=== PATIENT | male | born 1945 | race Caucasian/White ===

== ENCOUNTER 2017-03-26 10:38 | Outpatient (CLI) | payer MEDICARE ==
[2017-03-26 09:35] LABS: BASOPHILS # (AUTO) 0.1 10^3/uL (0.0-0.1); BASOPHILS % (AUTO) 1.3 %; EOSINOPHILS # (AUTO) 0.1 10^3/uL (0.0-0.7); EOSINOPHILS % (AUTO) 1.3 %; HGB - HEMOGLOBIN 14.4 g/dL (14.0-18.0); LYMPHOCYTES # (AUTO) 1.8 10^3/uL (1.5-3.5); LYMPHOCYTES % (AUTO) 32.8 %; MEAN CORPUSCULAR HEMOGLOBIN 32.5 pg (27.0-31.0); MEAN CORPUSCULAR HGB CONC 34.2 g/dL (32.0-36.0); MEAN PLATELET VOLUME 8.1 fL (7.4-11.4); MONOCYTES # (AUTO) 0.4 10^3/uL (0.0-1.0); MONOCYTES % (AUTO) 6.8 %; NEUTROPHILS # (AUTO) 3.2 10^3/uL (1.5-6.6); NEUTROPHILS % (AUTO) 57.8 %; RED BLOOD COUNT 4.42 10^6/uL (4.70-6.10); RED CELL DISTRIBUTION WIDTH 13.9 % (12.0-15.0); UNCORRECTED WHITE BLOOD COUNT 5.5 x10^3/uL; WHITE BLOOD COUNT 5.5 x10^3/uL (4.8-10.8)
[2017-03-26 10:26] LABS: ALBUMIN/GLOBULIN RATIO 1.3 (1.0-2.2); BUN - BLOOD UREA NITROGEN 28 mg/dL (6-20); CALCIUM 8.9 mg/dL (8.5-10.3); CARBON DIOXIDE - CO2 30 mmol/L (21-32); CHLORIDE 101 mmol/L (101-111); CHOL/HDL RATIO 2.8 (<5.0); CHOLESTEROL 166 mg/dL; CREATININE 0.9 mg/dL (0.6-1.2); GFR - MDRD 84 (>89); GLUCOSE 93 mg/dL (70-100); HDL CHOLESTEROL 60 mg/dL; LDL/HDL RATIO 1.6 (<3.6); SODIUM 138 mmol/L (135-145); TOTAL PROTEIN 6.3 g/dL (6.7-8.2); TRIGLYCERIDES 59 mg/dL; VLDL CHOLESTEROL 12 mg/dL
== END 2017-03-26 10:39 | disposition home or self-care (01) ==
LOC: LAB 10:38
PROVIDERS: ATTEND Internal Medicine
DX: E78.5 Hyperlipidemia, unspecified (principal); R62.50 Unspecified lack of expected normal physiological development in childhood
CPT/HCPCS: 36415; 80053; 80061; 84443; 85025

== ENCOUNTER 2017-07-16 08:00 | Outpatient (CLI) | payer MEDICARE ==
[2017-07-16 17:19] LABS: BASOPHILS % (AUTO) 0.6 %; EOSINOPHILS % (AUTO) 0.1 %; HGB - HEMOGLOBIN 13.1 g/dL (14.0-18.0); LYMPHOCYTES # (AUTO) 1.1 10^3/uL (1.5-3.5); LYMPHOCYTES % (AUTO) 12.9 %; MEAN CORPUSCULAR HEMOGLOBIN 32.6 pg (27.0-31.0); MEAN CORPUSCULAR HGB CONC 32.8 g/dL (32.0-36.0); MEAN CORPUSCULAR VOLUME 99.5 fL (80.0-94.0); MONOCYTES # (AUTO) 0.5 10^3/uL (0.0-1.0); MONOCYTES % (AUTO) 5.3 %; NEUTROPHILS % (AUTO) 81.1 %; PLT - PLATELET COUNT 257 10^3/uL (130-450); RED BLOOD COUNT 4.01 10^6/uL (4.70-6.10); RED CELL DISTRIBUTION WIDTH 13.3 % (12.0-15.0); WHITE BLOOD COUNT 8.6 x10^3/uL (4.8-10.8)
[2017-07-16 17:30] LABS: ALBUMIN 3.1 g/dL (3.2-5.5); CALCIUM 8.5 mg/dL (8.5-10.3); CREATININE 0.9 mg/dL (0.6-1.2); TOTAL PROTEIN 6.2 g/dL (6.7-8.2)
== END 2017-07-16 08:01 | disposition home or self-care (01) ==
LOC: LAB.R 08:00
PROVIDERS: ATTEND Internal Medicine
DX: R19.7 Diarrhea, unspecified (principal); R63.4 Abnormal weight loss
CPT/HCPCS: 80053; 84134; 85025

== ENCOUNTER 2017-09-19 09:21 | Outpatient (CLI) | payer MEDICARE, MEDICAID | END 2017-09-19 09:22 | disposition critical access hospital (66) | LOC: EMS 09:21 | PROVIDERS: ATTEND Surgery | DX: R07.9 Chest pain, unspecified (principal); R53.1 Weakness; R06.00 Dyspnea, unspecified; R26.81 Unsteadiness on feet; R29.6 Repeated falls | CPT/HCPCS: A0425; A0429 ==

== ENCOUNTER 2017-09-19 09:42 | Inpatient (IN) | payer MEDICARE, MEDICAID ==
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
[2017-09-19] MEDS ORDERED: MAGNESIUM SULFATE 2 GRAM 2 GM/50 ML BAG IV STA (10:21)
[2017-09-19] MEDS ORDERED: THIAMINE INJ 100 MG, FOLIC ACID INJ 1 MG in SODIUM CHLORIDE 0.9% 100ML 100 ML IV STA (10:21)
[2017-09-19] MEDS ORDERED: MULTIVITAMIN 10 ML in SODIUM CHLORIDE 0.9% 1,000 ML IV STA (10:21)
[2017-09-19 10:23] LABS: BASOPHILS # (AUTO) 0.1 10^3/uL (0.0-0.1); BASOPHILS % (AUTO) 1.2 %; EOSINOPHILS # (AUTO) 0.1 10^3/uL (0.0-0.7); EOSINOPHILS % (AUTO) 1.6 %; HGB - HEMOGLOBIN 14.1 g/dL (14.0-18.0); LYMPHOCYTES # (AUTO) 1.4 10^3/uL (1.5-3.5); LYMPHOCYTES % (AUTO) 28.7 %; MEAN CORPUSCULAR HEMOGLOBIN 34.2 pg (27.0-31.0); MEAN CORPUSCULAR HGB CONC 33.6 g/dL (32.0-36.0); MEAN CORPUSCULAR VOLUME 101.9 fL (80.0-94.0); MEAN PLATELET VOLUME 8.1 fL (7.4-11.4); MONOCYTES # (AUTO) 0.2 10^3/uL (0.0-1.0); MONOCYTES % (AUTO) 4.2 %; NEUTROPHILS # (AUTO) 3.2 10^3/uL (1.5-6.6); NEUTROPHILS % (AUTO) 64.3 %; PLT - PLATELET COUNT 315 10^3/uL (130-450); RED BLOOD COUNT 4.13 10^6/uL (4.70-6.10); RED CELL DISTRIBUTION WIDTH 14.1 % (12.0-15.0); WHITE BLOOD COUNT 4.9 x10^3/uL (4.8-10.8)
[2017-09-19 10:27] LABS: ALBUMIN 3.3 g/dL (3.2-5.5); ALBUMIN/GLOBULIN RATIO 0.9 (1.0-2.2); BILIRUBIN,TOTAL 0.7 mg/dL (0.2-1.0); CALCIUM 8.8 mg/dL (8.5-10.3); CREATININE 0.8 mg/dL (0.6-1.2); TOTAL PROTEIN 6.8 g/dL (6.7-8.2)
[2017-09-19 10:45] LABS: BILIRUBIN,URINE NEGATIVE (NEGATIVE); GLUCOSE, URINE (UA) NEGATIVE (NEGATIVE); KETONES,URINE (UA) NEGATIVE (NEGATIVE); LEUKOCYTE ESTERASE, URINE NEGATIVE (NEGATIVE); NITRITE,URINE NEGATIVE (NEGATIVE); OCCULT BLOOD,URINE NEGATIVE (NEGATIVE); PROTEIN,URINE NEGATIVE (NEGATIVE); UROBILINOGEN,URINE 0.2 (NORMAL) E.U./dL (NORMAL)
[2017-09-19 10:52] LABS: CLARITY,URINE CLEAR (CLEAR)
[2017-09-19] MEDS ORDERED: TEMAZEPAM 15 MG CAPSULE PO PRN (15:46)
[2017-09-19] MEDS ORDERED: SODIUM CHLORIDE FLUSH 0.9% 10 ML SYRINGE IVP PRN (15:46)
[2017-09-19] MEDS ORDERED: HYDROcod/ACETAM 5/325 MG TABLET PO PRN (15:46)
[2017-09-19] MEDS ORDERED: PROCHLORPERAZINE 10 MG/2 ML VIAL IVP PRN (15:46)
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
[2017-09-19] MEDS: SODIUM CHLORIDE FLUSH 0.9% 10 ML SYRINGE IVP SCH ×2 (17:58→23:44)
[2017-09-20] MEDS: SODIUM CHLORIDE FLUSH 0.9% 10 ML SYRINGE IVP SCH ×2 (08:09→16:28)
[2017-09-20] MEDS ORDERED: POLYETHYLENE GLYCOL 3350 17 GM PACKET PO SCH (09:00)
[2017-09-20 09:43] LABS: FOLATE 15.35 ng/mL (5.90 - >24.8)
--- NOTE | 2017-09-20 14:18 | PROVIDER PROGRESS NOTE ---
Subjective - Prog Note Date Prog Note Date: 09/20/17 Prog Note Time: 13:00 - Subjective Pt reports feeling: No change (The patient denies any new problems. He says he is comfortable and is looking forward to placement in his new facility.) Current Medications - Current Medications Current Medications: Active Medications Acetaminophen/Hydrocodone Bitart ([place] 5/325) 1 tab PO Q4HR PRN PRN Reason: Pain 5 to 7 Polyethylene Glycol (Miralax) 17 gm PO DAILY [facility] Last Admin: 09/20/17 08:09 Dose: 17 gm Prochlorperazine Edisylate (Compazine Inj) 10 mg IVP Q6HR PRN PRN Reason: Nausea / Vomiting Sodium Chloride (Normal Saline Flush 0.9%) 10 ml IVP PRN PRN PRN Reason: NEEDED PER PROVIDER ORDERS Sodium Chloride (Normal Saline Flush 0.9%) 10 ml IVP 0100,0900,1700 [facility] Last Admin: 09/20/17 08:09 Dose: 10 ml Temazepam (Restoril) 15 mg PO QPM PRN PRN Reason: Insomnia No Known Home Medications [No Known Home Medications] 08/17/15 Objective - Vital Signs/Intake & Output Reviewed Vital Signs: Yes Vital Signs: Vital Signs x48h Temp Pulse Resp BP Pulse Ox 09/20/17 07:47 36.7 C 67 20 113/68 97 Intake & Output: Intake & Output 09/17/17 09/18/17 09/19/17 09/20/17 23:59 23:59 23:59 23:59 Intake Total 640 1730 Output Total 301 Balance 640 1429 - Objective General Appearance: positive: No acute distress, Alert Eyes Bilateral: positive: Normal inspection, PERRL, EOMI, No lid inflammation, Conjunctivae nml, No scleral icterus ENT: positive: ENT inspection nml, Pharynx nml, No signs of dehydration Neck: positive: Nml inspection, Thyroid nml, No JVD, Trachea midline. negative : Thyromegaly Respiratory: positive: Chest non-tender, No respiratory distress, Breath sounds nml. negative: Wheezes, Rales, Rhonchi Cardiovascular: positive: Regular rate & rhythm, No murmur, No gallop Abdomen: positive: Non-tender, No organomegaly, Nml bowel sounds, No distention. negative: Guarding, Rebound Back: positive: Nml inspection. negative: CVA tenderness (R), CVA tenderness (L ) Skin: positive: Color nml, No rash, Warm, Dry. negative: Cyanosis Extremities: positive: Non-tender, Full ROM, Nml appearance Neurologic/Psychiatric: positive: Oriented x3, CN's nml (2-12), Motor nml, Sensation nml, Mood/affect nml - Lab Results Fish Bones: 09/19/17 10:15 09/19/17 10:15 Other Labs: Lab Results x24hrs 09/20/17 Range/Units 08:58 Vitamin B12 429 (180-914) pg/mL Folate 15.35 (5.90 - >24.8) ng/mL Assessment/Plan - Problem List (1) Adult failure to thrive Impression: The patient is thin and frail and developmentally delayed. According to the staff he has been eating a great deal, likely because he has not had an opportunity to do so in the recent past. Although his BMI at this time is 16.7 if he continues to eat he will no longer meet this criteria. In the meantime we are using all available resources to find the patient a new home.
[2017-09-21] MEDS: SODIUM CHLORIDE FLUSH 0.9% 10 ML SYRINGE IVP SCH ×2 (00:09→08:52)
[2017-09-21] MEDS ORDERED: LOPERAMIDE 2 MG CAPSULE PO PRN (00:17)
--- NOTE | 2017-09-21 15:29 | PROVIDER PROGRESS NOTE ---
Subjective - Prog Note Date Prog Note Date: 09/21/17 Prog Note Time: 15:00 - Subjective Pt reports feeling: Improved Subjective: The patient is very happy he is no longer in his former residence. He is eating all day and all night long. He denies any fevers, chills, shortness of breath, or chest pain. Current Medications - Current Medications Current Medications: Active Medications Acetaminophen/Hydrocodone Bitart ([place] 5/325) 1 tab PO Q4HR PRN PRN Reason: Pain 5 to 7 Loperamide HCl (Imodium) 2 mg PO QID PRN PRN Reason: Diarrhea Last Admin: 09/21/17 10:52 Dose: 2 mg Prochlorperazine Edisylate (Compazine Inj) 10 mg IVP Q6HR PRN PRN Reason: Nausea / Vomiting Sodium Chloride (Normal Saline Flush 0.9%) 10 ml IVP PRN PRN PRN Reason: NEEDED PER PROVIDER ORDERS Temazepam (Restoril) 15 mg PO QPM PRN PRN Reason: Insomnia No Known Home Medications [No Known Home Medications] 08/17/15 Objective - Vital Signs/Intake & Output Reviewed Vital Signs: Yes Vital Signs: Vital Signs x48h Temp Pulse Resp BP Pulse Ox 09/21/17 08:00 36.6 C 87 20 98/66 98 Intake & Output: Intake & Output 09/18/17 09/19/17 09/20/17 09/21/17 23:59 23:59 23:59 23:59 Intake Total 437 1430 Output Total 1125 1950 Balance -688 -520 - Objective General Appearance: positive: No acute distress, Alert, Other (The patient has shaved his simmons.) Eyes Bilateral: positive: Normal inspection, PERRL, EOMI, No lid inflammation, Conjunctivae nml, No scleral icterus ENT: positive: ENT inspection nml, Pharynx nml, No signs of dehydration Neck: positive: Nml inspection, Thyroid nml, No JVD, Trachea midline. negative : Thyromegaly Respiratory: positive: Chest non-tender, No respiratory distress, Breath sounds nml. negative: Wheezes, Rales, Rhonchi Cardiovascular: positive: Regular rate & rhythm, No murmur, No gallop Abdomen: positive: Non-tender, No organomegaly, Nml bowel sounds, No distention. negative: Guarding, Rebound Back: positive: Nml inspection. negative: CVA tenderness (R), CVA tenderness (L ) Skin: positive: Color nml, No rash, Warm, Dry. negative: Cyanosis Extremities: positive: Non-tender, Full ROM, Nml appearance Neurologic/Psychiatric: positive: Oriented x3, CN's nml (2-12), Motor nml, Sensation nml, Mood/affect nml - Lab Results Fish Bones: 09/19/17 10:15 09/19/17 10:15 Assessment/Plan - Problem List (1) Adult failure to thrive Impression: The patient is thin and frail and developmentally delayed. According to the staff he has been eating a great deal, likely because he has not had an opportunity to do so in the recent past. Although his BMI at this time is 16.7 if he continues to eat he will no longer meet this criteria. In the meantime we are using all available resources to find the patient a new home.
--- NOTE | 2017-09-22 14:03 | PROVIDER PROGRESS NOTE ---
Subjective - Prog Note Date Prog Note Date: 09/22/17 Prog Note Time: 13:15 - Subjective Pt reports feeling: Improved (The patient says he feels stronger. He always mentions how happy he is to not be back in his former home environment. He denies any fever, chills, shortness of breath, or chest pain.) Current Medications - Current Medications Current Medications: Active Medications Generic Name Dose Route Start Last Admin Trade Name Freq PRN Reason Stop Dose Admin Acetaminophen/Hydrocodone Bitart 1 tab 09/19/17 15:46 [place] 5/325 PO Q4HR PRN Pain 5 to 7 Calamine 118 applic 09/22/17 04:25 [place] TOP PRN PRN ITCHING Loperamide HCl 2 mg 09/21/17 00:17 09/21/17 10:52 Imodium PO 2 mg QID PRN Administration Diarrhea Prochlorperazine Edisylate 10 mg 09/19/17 15:46 Compazine Inj IVP Q6HR PRN Nausea / Vomiting Sodium Chloride 10 ml 09/19/17 15:46 Normal Saline Flush 0.9% IVP PRN PRN NEEDED PER PROVIDER ORDERS Temazepam 15 mg 09/19/17 15:46 Restoril PO QPM PRN Insomnia No Known Home Medications [No Known Home Medications] 08/17/15 Objective - Vital Signs/Intake & Output Reviewed Vital Signs: Yes Vital Signs: Vital Signs x48h Temp Pulse Resp BP Pulse Ox 09/22/17 07:47 36.7 C 81 18 104/64 97 Intake & Output: Intake & Output 09/19/17 09/20/17 09/21/17 09/22/17 23:59 23:59 23:59 23:59 Intake Total 437 2110 2410 Output Total 9265 4752 1112 Balance -386 -215 -365 - Objective General Appearance: positive: No acute distress, Alert Eyes Bilateral: positive: Normal inspection, PERRL, EOMI, No lid inflammation, Conjunctivae nml, No scleral icterus ENT: positive: ENT inspection nml, Pharynx nml, No signs of dehydration Neck: positive: Nml inspection, Thyroid nml, No JVD, Trachea midline. negative : Thyromegaly Respiratory: positive: Chest non-tender, No respiratory distress, Breath sounds nml. negative: Wheezes, Rales, Rhonchi Cardiovascular: positive: Regular rate & rhythm, No murmur, No gallop Abdomen: positive: Non-tender, No organomegaly, Nml bowel sounds, No distention. negative: Guarding, Rebound Back: positive: Nml inspection. negative: CVA tenderness (R), CVA tenderness (L ) Skin: positive: Color nml, No rash, Warm, Dry. negative: Cyanosis Extremities: positive: Non-tender, Full ROM, Nml appearance Neurologic/Psychiatric: positive: Oriented x3, CN's nml (2-12), Motor nml, Sensation nml, Mood/affect nml - Lab Results Fish Bones: 09/19/17 10:15 09/19/17 10:15 Assessment/Plan - Problem List (1) Adult failure to thrive Impression: The patient is thin and frail and developmentally delayed. According to the staff he has been eating a great deal, likely because he has not had an opportunity to do so in the recent past. Although his BMI at this time is 16.7 if he continues to eat he will no longer meet this criteria. In the meantime we are using all available resources to find the patient a new home.
[2017-09-23] MEDS: CALAMINE/ZINC OXIDE 118 ML BOTTLE TOP PRN (01:17)
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
[2017-09-24] MEDS: CALAMINE/ZINC OXIDE 118 ML BOTTLE TOP PRN (21:41)
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
[2017-09-27 05:52] LABS: BASOPHILS # (AUTO) 0.1 10^3/uL (0.0-0.1); HGB - HEMOGLOBIN 10.5 g/dL (14.0-18.0); MEAN CORPUSCULAR VOLUME 103.9 fL (80.0-94.0); NEUTROPHILS # (AUTO) 5.4 10^3/uL (1.5-6.6)
[2017-09-27 05:58] LABS: BASOPHILS % (AUTO) 1.4 %; EOSINOPHILS # (AUTO) 0.7 10^3/uL (0.0-0.7); EOSINOPHILS % (AUTO) 7.4 %; LYMPHOCYTES # (AUTO) 1.7 10^3/uL (1.5-3.5); LYMPHOCYTES % (AUTO) 18.7 %; MEAN CORPUSCULAR HGB CONC 32.8 g/dL (32.0-36.0); MEAN PLATELET VOLUME 7.9 fL (7.4-11.4); MONOCYTES # (AUTO) 1.2 10^3/uL (0.0-1.0); MONOCYTES % (AUTO) 12.9 %; NEUTROPHILS % (AUTO) 59.6 %; PLT - PLATELET COUNT 289 10^3/uL (130-450); RED BLOOD COUNT 3.08 10^6/uL (4.70-6.10); RED CELL DISTRIBUTION WIDTH 14.7 % (12.0-15.0)
[2017-09-27 06:06] LABS: ALBUMIN 2.9 g/dL (3.2-5.5); ALKALINE PHOSPHATASE 110 IU/L (42-121); ALT ALANINE AMINOTRANSFERASE 103 IU/L (10-60); AST ASPARTATE AMINOTRANSFERASE 70 IU/L (10-42); BILIRUBIN,TOTAL 0.7 mg/dL (0.2-1.0); BUN - BLOOD UREA NITROGEN 28 mg/dL (6-20); CALCIUM 8.7 mg/dL (8.5-10.3); CARBON DIOXIDE - CO2 31 mmol/L (21-32); CHLORIDE 101 mmol/L (101-111); CREATININE 0.7 mg/dL (0.6-1.2); GFR - MDRD 112 (>89); GLUCOSE 93 mg/dL (70-100); MAGNESIUM 2.3 mg/dL (1.7-2.8); PHOSPHORUS 4.9 mg/dL (2.5-4.6); SODIUM 139 mmol/L (135-145); TOTAL PROTEIN 5.9 g/dL (6.7-8.2)
[2017-09-27 06:25] LABS: PLATELET ESTIMATE, MANUAL NORMAL (130-450,000) (NORMAL); PLATELET MORPHOLOGY NORMAL APPEARANCE (NORMAL); RBC MORPHOLOGY (MULTIPLE) NORMAL APPEARANCE (NORMAL)
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
[2017-09-28 06:26] LABS: BASOPHILS % (AUTO) 1.3 %; EOSINOPHILS % (AUTO) 7.2 %; HGB - HEMOGLOBIN 10.4 g/dL (14.0-18.0); LYMPHOCYTES % (AUTO) 17.8 %; MEAN CORPUSCULAR HEMOGLOBIN 34.4 pg (27.0-31.0); MEAN CORPUSCULAR HGB CONC 32.9 g/dL (32.0-36.0); MEAN CORPUSCULAR VOLUME 104.5 fL (80.0-94.0); MEAN PLATELET VOLUME 7.9 fL (7.4-11.4); MONOCYTES % (AUTO) 12.9 %; NEUTROPHILS % (AUTO) 60.8 %; PLT - PLATELET COUNT 322 10^3/uL (130-450); RED BLOOD COUNT 3.03 10^6/uL (4.70-6.10); RED CELL DISTRIBUTION WIDTH 14.7 % (12.0-15.0); WHITE BLOOD COUNT 9.2 x10^3/uL (4.8-10.8)
[2017-09-28 06:31] LABS: ABNORMAL LYMPHS % (MANUAL) 0 %
[2017-09-28 06:33] LABS: ALKALINE PHOSPHATASE 115 IU/L (42-121); ALT ALANINE AMINOTRANSFERASE 87 IU/L (10-60); AST ASPARTATE AMINOTRANSFERASE 55 IU/L (10-42); BILIRUBIN,TOTAL 0.3 mg/dL (0.2-1.0); BUN - BLOOD UREA NITROGEN 32 mg/dL (6-20); CALCIUM 8.7 mg/dL (8.5-10.3); CARBON DIOXIDE - CO2 29 mmol/L (21-32); CHLORIDE 102 mmol/L (101-111); CREATININE 0.8 mg/dL (0.6-1.2); GFR - MDRD 96 (>89); GLUCOSE 90 mg/dL (70-100); SODIUM 138 mmol/L (135-145)
[2017-09-28 07:16] LABS: BAND NEUTROPHILS % (MANUAL) 1 %; BASOPHILS # (MANUAL) 0.2 10^3/uL (0-0.1); BASOPHILS % (MANUAL) 2 %; EOSINOPHILS # (MANUAL) 0.8 10^3/uL (0-0.7); LYMPHOCYTES # (MANUAL) 1.6 10^3/uL (1.5-3.5); LYMPHOCYTES % (MANUAL) 9 %; NEUTROPHILS # (MANUAL) 5.6 10^3/uL (1.5-6.6); NEUTROPHILS % (MANUAL) 60 %
[2017-09-28 07:17] LABS: PLATELET ESTIMATE, MANUAL NORMAL (130-450,000) (NORMAL); PLATELET MORPHOLOGY 1+ LARGE PLATELETS (NORMAL)
[2017-09-28 07:18] LABS: DIFFERENTIAL COMMENT MANUAL DIFFERENTIAL
[2017-09-28 09:25] LABS: % IRON SATURATION 17 % (20-50); IRON 46 ug/dL (45-182); TOTAL IRON BINDING CAPACITY 267 ug/dL (250-450); TRANSFERRIN 191 mg/dL (180-329)
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
[2017-09-28] MEDS ORDERED: diphenhydrAMINE 25 MG CAPSULE PO SCH (11:00)
[2017-09-28] MEDS: HYDROCORTISONE 1% CREAM 28 GM TUBE TOP SCH ×2 (12:05→20:18)
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
[2017-09-29] MEDS: HYDROCORTISONE 1% CREAM 28 GM TUBE TOP SCH ×2 (17:03→21:21)
[2017-09-30] MEDS: HYDROCORTISONE 1% CREAM 28 GM TUBE TOP SCH (10:30)
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
[2017-10-01] MEDS: HYDROCORTISONE 1% CREAM 28 GM TUBE TOP SCH ×3 (11:05→20:33)
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
[2017-10-02] MEDS: HYDROCORTISONE 1% CREAM 28 GM TUBE TOP SCH ×2 (11:44→21:41)
--- NOTE | 2017-10-02 15:29 | PROVIDER PROGRESS NOTE ---
Assessment/Plan - Problem List (1) Adult failure to thrive Assessment/Plan: No new problems on these diet and med orders. Pt is awaiting placement. (2) Anemia Qualifiers: Anemia type: unspecified type Qualified Code(s): D64.9 - Anemia, unspecified Assessment/Plan: Chronic and stable. (3) Skin rash Assessment/Plan: Resolved - Current Meds Current Meds: Current Medications Generic Name Dose Route Start Last Admin Trade Name Freq PRN Reason Stop Dose Admin Calamine 118 applic 09/22/17 04:25 09/24/17 21:41 Calamine TOP 118 applic PRN PRN Administration ITCHING Hydrocortisone 1 applic 09/28/17 11:00 10/02/17 11:44 Hydrocortisone TOP 1 applic BID EJ Administration Loperamide HCl 2 mg 09/21/17 00:17 09/21/17 10:52 Imodium PO 2 mg QID PRN Administration Diarrhea - Lab Result Fish Bone Diagrams: 09/28/17 05:40 09/28/17 05:40 Subjective - Subjective Patient Reports: No Complaints Nursing Reports: No Complaints Objective Vital Signs: Vital Signs - 24 hr 10/01/17 10/01/17 10/02/17 15:49 23:30 07:44 Temperature 36.6 C 36.4 C L 36.4 C L Heart Rate [ 77 84 82 Brachial] Respiratory 20 16 20 Rate Blood Pressure 100/53 L 108/65 114/65 [Right Brachial artery] O2 Saturation 96 96 96 Oxygen O2 Source Room air I&O (Last 24 Hrs): Intake and Output Totals x24h 09/30/17 10/01/17 10/02/17 23:59 23:59 23:59 Intake Total 2520 3006 2740 Output Total 2250 3900 2050 Balance 270 -894 690 General: No acute distress - Results Results: Laboratory Results WBC 9.2 x10^3/uL (4.8-10.8) 09/28/17 05:40 RBC 3.03 10^6/uL (4.70-6.10) L 09/28/17 05:40 Hgb 10.4 g/dL (14.0-18.0) L 09/28/17 05:40 Hct 31.6 % (42.0-52.0) L 09/28/17 05:40 MCV 104.5 fL (80.0-94.0) H 09/28/17 05:40 MCH 34.4 pg (27.0-31.0) H 09/28/17 05:40 MCHC 32.9 g/dL (32.0-36.0) 09/28/17 05:40 RDW 14.7 % (12.0-15.0) 09/28/17 05:40 Plt Count 322 10^3/uL (130-450) 09/28/17 05:40 MPV 7.9 fL (7.4-11.4) 09/28/17 05:40 Neut # Not Reportable 09/28/17 05:40 Lymph # Not Reportable 09/28/17 05:40 [place] # Not Reportable 09/28/17 05:40 Eos # Not Reportable 09/28/17 05:40 Baso # Not Reportable 09/28/17 05:40 Absolute Nucleated RBC Not Reportable 09/28/17 05:40 Total Counted 100 09/28/17 05:40 Band Neuts % (Manual) 1 % (0-10) 09/28/17 05:40 Reactive Lymphs % (Man) 8 % 09/28/17 05:40 Abnorm Lymph % (Manual) 0 % 09/28/17 05:40 Nucleated RBC % Not Reportable 09/28/17 05:40 Neutrophils # (Manual) 5.6 10^3/uL (1.5-6.6) 09/28/17 05:40 Lymphocytes # (Manual) 1.6 10^3/uL (1.5-3.5) 09/28/17 05:40 Monocytes # (Manual) 1.0 10^3/uL (0.0-1.0) 09/28/17 05:40 Eosinophils # (Manual) 0.8 10^3/uL (0-0.7) H 09/28/17 05:40 Basophils # (Manual) 0.2 10^3/uL (0-0.1) H 09/28/17 05:40 Differential Comment MANUAL DIFFERENTIAL 09/28/17 05:40 Manual Slide Review Indicated 09/27/17 05:20 Platelet Estimate NORMAL (130-450,000) (NORMAL) 09/28/17 05:40 Platelet Morphology 1+ LARGE PLATELETS (NORMAL) 09/28/17 05:40 RBC Morph Micro Appear 1+ POLYCHROMASIA (NORMAL) 1+ ANISOCYTOSIS (NORMAL) 1+ MACROCYTOSIS (NORMAL) 09/28/17 05:40 RBC Morph Micro Appear 1+ POLYCHROMASIA (NORMAL) 1+ ANISOCYTOSIS (NORMAL) 1+ MACROCYTOSIS (NORMAL) 09/28/17 05:40 RBC Morph Micro Appear 1+ POLYCHROMASIA (NORMAL) 1+ ANISOCYTOSIS (NORMAL) 1+ MACROCYTOSIS (NORMAL) 09/28/17 05:40 Sodium 138 mmol/L (135-145) 09/28/17 05:40 Potassium 4.2 mmol/L (3.5-5.0) 09/28/17 05:40 Chloride 102 mmol/L (101-111) 09/28/17 05:40 Carbon Dioxide 29 mmol/L (21-32) 09/28/17 05:40 Anion Gap 7.0 (6-13) 09/28/17 05:40 BUN 32 mg/dL (6-20) H 09/28/17 05:40 Creatinine 0.8 mg/dL (0.6-1.2) 09/28/17 05:40 Estimated GFR (MDRD) 96 (>89) 09/28/17 05:40 Glucose 90 mg/dL (70-100) 09/28/17 05:40 Calcium 8.7 mg/dL (8.5-10.3) 09/28/17 05:40 Ionized Calcium NO 09/28/17 05:40 Phosphorus 4.9 mg/dL (2.5-4.6) H 09/27/17 05:20 Magnesium 2.3 mg/dL (1.7-2.8) 09/27/17 05:20 Iron 46 ug/dL (45-182) 09/28/17 08:59 TIBC 267 ug/dL (250-450) 09/28/17 08:59 % Saturation 17 % (20-50) L 09/28/17 08:59 Transferrin 191 mg/dL (180-329) 09/28/17 08:59 Ferritin 307.8 ng/mL (23.9-336.2) 09/28/17 05:40 Total Bilirubin 0.3 mg/dL (0.2-1.0) 09/28/17 05:40 AST 55 IU/L (10-42) H 09/28/17 05:40 ALT 87 IU/L (10-60) H 09/28/17 05:40 Alkaline Phosphatase 115 IU/L (42-121) 09/28/17 05:40 Total Protein 6.0 g/dL (6.7-8.2) L 09/28/17 05:40 Albumin 3.0 g/dL (3.2-5.5) L 09/28/17 05:40 Globulin 3.0 g/dL (2.1-4.2) 09/28/17 05:40 Albumin/Globulin Ratio 1.0 (1.0-2.2) 09/28/17 05:40 Lipase 32 U/L (22-51) 09/19/17 10:15 Vitamin B12 429 pg/mL (180-914) 09/20/17 08:58 Folate 15.35 ng/mL (5.90 - >24.8) 09/20/17 08:58 Urine Color DARK YELLOW 09/19/17 09:50 Urine Clarity CLEAR (CLEAR) 09/19/17 09:50 Urine pH 6.0 PH (5.0-7.5) 09/19/17 09:50 Ur Specific [place] 1.025 (1.002-1.030) 09/19/17 09:50 Urine Protein NEGATIVE mg/dL (NEGATIVE) 09/19/17 09:50 Urine Glucose (UA) NEGATIVE mg/dL (NEGATIVE) 09/19/17 09:50 Urine Ketones NEGATIVE mg/dL (NEGATIVE) 09/19/17 09:50 Urine Occult Blood NEGATIVE (NEGATIVE) 09/19/17 09:50 Urine Nitrite NEGATIVE (NEGATIVE) 09/19/17 09:50 Urine Bilirubin NEGATIVE (NEGATIVE) 09/19/17 09:50 Urine Urobilinogen 0.2 (NORMAL) E.U./dL (NORMAL) 09/19/17 09:50 Ur Leukocyte Esterase NEGATIVE (NEGATIVE) 09/19/17 09:50 Ur Microscopic Review NOT INDICATED 09/19/17 09:50 Urine Culture Comments NOT INDICATED 09/19/17 09:50
[2017-10-03] MEDS: HYDROCORTISONE 1% CREAM 28 GM TUBE TOP SCH ×2 (09:38→20:10)
--- NOTE | 2017-10-03 13:17 | PROVIDER PROGRESS NOTE ---
Assessment/Plan - Problem List (1) Adult failure to thrive Assessment/Plan: The patient is active, awaiting placement. (2) Anemia Qualifiers: Anemia type: unspecified type Qualified Code(s): D64.9 - Anemia, unspecified - Current Meds Current Meds: Current Medications Generic Name Dose Route Start Last Admin Trade Name Freq PRN Reason Stop Dose Admin Calamine 118 applic 09/22/17 04:25 09/24/17 21:41 Calamine TOP 118 applic PRN PRN Administration ITCHING Hydrocortisone 1 applic 09/28/17 11:00 10/03/17 09:38 Hydrocortisone TOP 1 applic BID EJ Administration Loperamide HCl 2 mg 09/21/17 00:17 09/21/17 10:52 Imodium PO 2 mg QID PRN Administration Diarrhea - Lab Result Fish Bone Diagrams: 09/28/17 05:40 09/28/17 05:40 Subjective - Subjective Patient Reports: No Complaints Nursing Reports: No Complaints Objective Vital Signs: Vital Signs - 24 hr 10/02/17 10/03/17 10/03/17 15:51 00:00 07:45 Temperature 37.2 C 36.9 C 36.5 C Heart Rate [ 74 76 73 Brachial] Respiratory 16 16 18 Rate Blood Pressure 119/69 110/51 L 119/77 [Right Brachial artery] O2 Saturation 97 96 95 Oxygen O2 Source Room air I&O (Last 24 Hrs): Intake and Output Totals x24h 10/01/17 10/02/17 10/03/17 23:59 23:59 23:59 Intake Total 3006 4016 1460 Output Total 3900 3600 3000 Balance -894 416 1540 - Results Results: Laboratory Results WBC 9.2 x10^3/uL (4.8-10.8) 09/28/17 05:40 RBC 3.03 10^6/uL (4.70-6.10) L 09/28/17 05:40 Hgb 10.4 g/dL (14.0-18.0) L 09/28/17 05:40 Hct 31.6 % (42.0-52.0) L 09/28/17 05:40 MCV 104.5 fL (80.0-94.0) H 09/28/17 05:40 MCH 34.4 pg (27.0-31.0) H 09/28/17 05:40 MCHC 32.9 g/dL (32.0-36.0) 09/28/17 05:40 RDW 14.7 % (12.0-15.0) 09/28/17 05:40 Plt Count 322 10^3/uL (130-450) 09/28/17 05:40 MPV 7.9 fL (7.4-11.4) 09/28/17 05:40 Neut # Not Reportable 09/28/17 05:40 Lymph # Not Reportable 09/28/17 05:40 [place] # Not Reportable 09/28/17 05:40 Eos # Not Reportable 09/28/17 05:40 Baso # Not Reportable 09/28/17 05:40 Absolute Nucleated RBC Not Reportable 09/28/17 05:40 Total Counted 100 09/28/17 05:40 Band Neuts % (Manual) 1 % (0-10) 09/28/17 05:40 Reactive Lymphs % (Man) 8 % 09/28/17 05:40 Abnorm Lymph % (Manual) 0 % 09/28/17 05:40 Nucleated RBC % Not Reportable 09/28/17 05:40 Neutrophils # (Manual) 5.6 10^3/uL (1.5-6.6) 09/28/17 05:40 Lymphocytes # (Manual) 1.6 10^3/uL (1.5-3.5) 09/28/17 05:40 Monocytes # (Manual) 1.0 10^3/uL (0.0-1.0) 09/28/17 05:40 Eosinophils # (Manual) 0.8 10^3/uL (0-0.7) H 09/28/17 05:40 Basophils # (Manual) 0.2 10^3/uL (0-0.1) H 09/28/17 05:40 Differential Comment MANUAL DIFFERENTIAL 09/28/17 05:40 Manual Slide Review Indicated 09/27/17 05:20 Platelet Estimate NORMAL (130-450,000) (NORMAL) 09/28/17 05:40 Platelet Morphology 1+ LARGE PLATELETS (NORMAL) 09/28/17 05:40 RBC Morph Micro Appear 1+ POLYCHROMASIA (NORMAL) 1+ ANISOCYTOSIS (NORMAL) 1+ MACROCYTOSIS (NORMAL) 09/28/17 05:40 RBC Morph Micro Appear 1+ POLYCHROMASIA (NORMAL) 1+ ANISOCYTOSIS (NORMAL) 1+ MACROCYTOSIS (NORMAL) 09/28/17 05:40 RBC Morph Micro Appear 1+ POLYCHROMASIA (NORMAL) 1+ ANISOCYTOSIS (NORMAL) 1+ MACROCYTOSIS (NORMAL) 09/28/17 05:40 Sodium 138 mmol/L (135-145) 09/28/17 05:40 Potassium 4.2 mmol/L (3.5-5.0) 09/28/17 05:40 Chloride 102 mmol/L (101-111) 09/28/17 05:40 Carbon Dioxide 29 mmol/L (21-32) 09/28/17 05:40 Anion Gap 7.0 (6-13) 09/28/17 05:40 BUN 32 mg/dL (6-20) H 09/28/17 05:40 Creatinine 0.8 mg/dL (0.6-1.2) 09/28/17 05:40 Estimated GFR (MDRD) 96 (>89) 09/28/17 05:40 Glucose 90 mg/dL (70-100) 09/28/17 05:40 Calcium 8.7 mg/dL (8.5-10.3) 09/28/17 05:40 Ionized Calcium NO 09/28/17 05:40 Phosphorus 4.9 mg/dL (2.5-4.6) H 09/27/17 05:20 Magnesium 2.3 mg/dL (1.7-2.8) 09/27/17 05:20 Iron 46 ug/dL (45-182) 09/28/17 08:59 TIBC 267 ug/dL (250-450) 09/28/17 08:59 % Saturation 17 % (20-50) L 09/28/17 08:59 Transferrin 191 mg/dL (180-329) 09/28/17 08:59 Ferritin 307.8 ng/mL (23.9-336.2) 09/28/17 05:40 Total Bilirubin 0.3 mg/dL (0.2-1.0) 09/28/17 05:40 AST 55 IU/L (10-42) H 09/28/17 05:40 ALT 87 IU/L (10-60) H 09/28/17 05:40 Alkaline Phosphatase 115 IU/L (42-121) 09/28/17 05:40 Total Protein 6.0 g/dL (6.7-8.2) L 09/28/17 05:40 Albumin 3.0 g/dL (3.2-5.5) L 09/28/17 05:40 Globulin 3.0 g/dL (2.1-4.2) 09/28/17 05:40 Albumin/Globulin Ratio 1.0 (1.0-2.2) 09/28/17 05:40 Lipase 32 U/L (22-51) 09/19/17 10:15 Vitamin B12 429 pg/mL (180-914) 09/20/17 08:58 Folate 15.35 ng/mL (5.90 - >24.8) 09/20/17 08:58 Urine Color DARK YELLOW 09/19/17 09:50 Urine Clarity CLEAR (CLEAR) 09/19/17 09:50 Urine pH 6.0 PH (5.0-7.5) 09/19/17 09:50 Ur Specific [place] 1.025 (1.002-1.030) 09/19/17 09:50 Urine Protein NEGATIVE mg/dL (NEGATIVE) 09/19/17 09:50 Urine Glucose (UA) NEGATIVE mg/dL (NEGATIVE) 09/19/17 09:50 Urine Ketones NEGATIVE mg/dL (NEGATIVE) 09/19/17 09:50 Urine Occult Blood NEGATIVE (NEGATIVE) 09/19/17 09:50 Urine Nitrite NEGATIVE (NEGATIVE) 09/19/17 09:50 Urine Bilirubin NEGATIVE (NEGATIVE) 09/19/17 09:50 Urine Urobilinogen 0.2 (NORMAL) E.U./dL (NORMAL) 09/19/17 09:50 Ur Leukocyte Esterase NEGATIVE (NEGATIVE) 09/19/17 09:50 Ur Microscopic Review NOT INDICATED 09/19/17 09:50 Urine Culture Comments NOT INDICATED 09/19/17 09:50
[2017-10-04] MEDS: HYDROCORTISONE 1% CREAM 28 GM TUBE TOP SCH ×2 (10:59→23:12)
--- NOTE | 2017-10-04 17:22 | PROVIDER PROGRESS NOTE ---
Assessment/Plan - Problem List (1) Adult failure to thrive Assessment/Plan: Awaiting placement. (2) Anemia Qualifiers: Anemia type: unspecified type Qualified Code(s): D64.9 - Anemia, unspecified - Current Meds Current Meds: Current Medications Generic Name Dose Route Start Last Admin Trade Name Freq PRN Reason Stop Dose Admin Calamine 118 applic 09/22/17 04:25 09/24/17 21:41 Calamine TOP 118 applic PRN PRN Administration ITCHING Hydrocortisone 1 applic 09/28/17 11:00 10/04/17 10:59 Hydrocortisone TOP 1 applic BID EJ Administration Loperamide HCl 2 mg 09/21/17 00:17 09/21/17 10:52 Imodium PO 2 mg QID PRN Administration Diarrhea - Lab Result Fish Bone Diagrams: 09/28/17 05:40 09/28/17 05:40 Subjective - Subjective Patient Reports: No Complaints Nursing Reports: No Complaints Objective Vital Signs: Vital Signs - 24 hr 10/04/17 10/04/17 10/04/17 01:05 10:33 15:19 Temperature 36.3 C L 36.6 C 36.4 C L Heart Rate [ 75 72 68 Brachial] Respiratory 18 14 16 Rate Blood Pressure 108/68 108/69 112/72 [Right Brachial artery] O2 Saturation 95 97 96 Oxygen O2 Source Room air I&O (Last 24 Hrs): Intake and Output Totals x24h 10/02/17 10/03/17 10/04/17 23:59 23:59 23:59 Intake Total 4016 2601 1890 Output Total 3600 4475 1400 Balance 416 -7034 490 - Results Results: Laboratory Results WBC 9.2 x10^3/uL (4.8-10.8) 09/28/17 05:40 RBC 3.03 10^6/uL (4.70-6.10) L 09/28/17 05:40 Hgb 10.4 g/dL (14.0-18.0) L 09/28/17 05:40 Hct 31.6 % (42.0-52.0) L 09/28/17 05:40 MCV 104.5 fL (80.0-94.0) H 09/28/17 05:40 MCH 34.4 pg (27.0-31.0) H 09/28/17 05:40 MCHC 32.9 g/dL (32.0-36.0) 09/28/17 05:40 RDW 14.7 % (12.0-15.0) 09/28/17 05:40 Plt Count 322 10^3/uL (130-450) 09/28/17 05:40 MPV 7.9 fL (7.4-11.4) 09/28/17 05:40 Neut # Not Reportable 09/28/17 05:40 Lymph # Not Reportable 09/28/17 05:40 [place] # Not Reportable 09/28/17 05:40 Eos # Not Reportable 09/28/17 05:40 Baso # Not Reportable 09/28/17 05:40 Absolute Nucleated RBC Not Reportable 09/28/17 05:40 Total Counted 100 09/28/17 05:40 Band Neuts % (Manual) 1 % (0-10) 09/28/17 05:40 Reactive Lymphs % (Man) 8 % 09/28/17 05:40 Abnorm Lymph % (Manual) 0 % 09/28/17 05:40 Nucleated RBC % Not Reportable 09/28/17 05:40 Neutrophils # (Manual) 5.6 10^3/uL (1.5-6.6) 09/28/17 05:40 Lymphocytes # (Manual) 1.6 10^3/uL (1.5-3.5) 09/28/17 05:40 Monocytes # (Manual) 1.0 10^3/uL (0.0-1.0) 09/28/17 05:40 Eosinophils # (Manual) 0.8 10^3/uL (0-0.7) H 09/28/17 05:40 Basophils # (Manual) 0.2 10^3/uL (0-0.1) H 09/28/17 05:40 Differential Comment MANUAL DIFFERENTIAL 09/28/17 05:40 Manual Slide Review Indicated 09/27/17 05:20 Platelet Estimate NORMAL (130-450,000) (NORMAL) 09/28/17 05:40 Platelet Morphology 1+ LARGE PLATELETS (NORMAL) 09/28/17 05:40 RBC Morph Micro Appear 1+ POLYCHROMASIA (NORMAL) 1+ ANISOCYTOSIS (NORMAL) 1+ MACROCYTOSIS (NORMAL) 09/28/17 05:40 RBC Morph Micro Appear 1+ POLYCHROMASIA (NORMAL) 1+ ANISOCYTOSIS (NORMAL) 1+ MACROCYTOSIS (NORMAL) 09/28/17 05:40 RBC Morph Micro Appear 1+ POLYCHROMASIA (NORMAL) 1+ ANISOCYTOSIS (NORMAL) 1+ MACROCYTOSIS (NORMAL) 09/28/17 05:40 Sodium 138 mmol/L (135-145) 09/28/17 05:40 Potassium 4.2 mmol/L (3.5-5.0) 09/28/17 05:40 Chloride 102 mmol/L (101-111) 09/28/17 05:40 Carbon Dioxide 29 mmol/L (21-32) 09/28/17 05:40 Anion Gap 7.0 (6-13) 09/28/17 05:40 BUN 32 mg/dL (6-20) H 09/28/17 05:40 Creatinine 0.8 mg/dL (0.6-1.2) 09/28/17 05:40 Estimated GFR (MDRD) 96 (>89) 09/28/17 05:40 Glucose 90 mg/dL (70-100) 09/28/17 05:40 Calcium 8.7 mg/dL (8.5-10.3) 09/28/17 05:40 Ionized Calcium NO 09/28/17 05:40 Phosphorus 4.9 mg/dL (2.5-4.6) H 09/27/17 05:20 Magnesium 2.3 mg/dL (1.7-2.8) 09/27/17 05:20 Iron 46 ug/dL (45-182) 09/28/17 08:59 TIBC 267 ug/dL (250-450) 09/28/17 08:59 % Saturation 17 % (20-50) L 09/28/17 08:59 Transferrin 191 mg/dL (180-329) 09/28/17 08:59 Ferritin 307.8 ng/mL (23.9-336.2) 09/28/17 05:40 Total Bilirubin 0.3 mg/dL (0.2-1.0) 09/28/17 05:40 AST 55 IU/L (10-42) H 09/28/17 05:40 ALT 87 IU/L (10-60) H 09/28/17 05:40 Alkaline Phosphatase 115 IU/L (42-121) 09/28/17 05:40 Total Protein 6.0 g/dL (6.7-8.2) L 09/28/17 05:40 Albumin 3.0 g/dL (3.2-5.5) L 09/28/17 05:40 Globulin 3.0 g/dL (2.1-4.2) 09/28/17 05:40 Albumin/Globulin Ratio 1.0 (1.0-2.2) 09/28/17 05:40 Lipase 32 U/L (22-51) 09/19/17 10:15 Vitamin B12 429 pg/mL (180-914) 09/20/17 08:58 Folate 15.35 ng/mL (5.90 - >24.8) 09/20/17 08:58 Urine Color DARK YELLOW 09/19/17 09:50 Urine Clarity CLEAR (CLEAR) 09/19/17 09:50 Urine pH 6.0 PH (5.0-7.5) 09/19/17 09:50 Ur Specific [place] 1.025 (1.002-1.030) 09/19/17 09:50 Urine Protein NEGATIVE mg/dL (NEGATIVE) 09/19/17 09:50 Urine Glucose (UA) NEGATIVE mg/dL (NEGATIVE) 09/19/17 09:50 Urine Ketones NEGATIVE mg/dL (NEGATIVE) 09/19/17 09:50 Urine Occult Blood NEGATIVE (NEGATIVE) 09/19/17 09:50 Urine Nitrite NEGATIVE (NEGATIVE) 09/19/17 09:50 Urine Bilirubin NEGATIVE (NEGATIVE) 09/19/17 09:50 Urine Urobilinogen 0.2 (NORMAL) E.U./dL (NORMAL) 09/19/17 09:50 Ur Leukocyte Esterase NEGATIVE (NEGATIVE) 09/19/17 09:50 Ur Microscopic Review NOT INDICATED 09/19/17 09:50 Urine Culture Comments NOT INDICATED 09/19/17 09:50
[2017-10-05] MEDS: HYDROCORTISONE 1% CREAM 28 GM TUBE TOP SCH ×2 (10:34→21:05)
--- NOTE | 2017-10-05 11:19 | PROVIDER PROGRESS NOTE ---
Assessment/Plan - Problem List (1) Adult failure to thrive Assessment/Plan: Awaiting placement, by Social Workers. (2) Anemia Qualifiers: Anemia type: unspecified type Qualified Code(s): D64.9 - Anemia, unspecified - Current Meds Current Meds: Current Medications Generic Name Dose Route Start Last Admin Trade Name Freq PRN Reason Stop Dose Admin Calamine 118 applic 09/22/17 04:25 09/24/17 21:41 Calamine TOP 118 applic PRN PRN Administration ITCHING Hydrocortisone 1 applic 09/28/17 11:00 10/05/17 10:34 Hydrocortisone TOP Not Given BID EJ Loperamide HCl 2 mg 09/21/17 00:17 09/21/17 10:52 Imodium PO 2 mg QID PRN Administration Diarrhea - Lab Result Fish Bone Diagrams: 09/28/17 05:40 09/28/17 05:40 Subjective - Subjective Patient Reports: No Complaints Nursing Reports: No Complaints Objective Vital Signs: Vital Signs - 24 hr 10/04/17 10/05/17 10/05/17 15:19 01:25 07:32 Temperature 36.4 C L 36.7 C 36.5 C Heart Rate [ 68 76 77 Brachial] Respiratory 16 16 20 Rate Blood Pressure 112/72 118/72 108/61 [Right Brachial artery] O2 Saturation 96 96 98 Oxygen O2 Source Room air I&O (Last 24 Hrs): Intake and Output Totals x24h 10/03/17 10/04/17 10/05/17 23:59 23:59 23:59 Intake Total 2601 2440 480 Output Total 1121 6810 1250 Balance -1874 -960 -770 - Results Results: Laboratory Results WBC 9.2 x10^3/uL (4.8-10.8) 09/28/17 05:40 RBC 3.03 10^6/uL (4.70-6.10) L 09/28/17 05:40 Hgb 10.4 g/dL (14.0-18.0) L 09/28/17 05:40 Hct 31.6 % (42.0-52.0) L 09/28/17 05:40 MCV 104.5 fL (80.0-94.0) H 09/28/17 05:40 MCH 34.4 pg (27.0-31.0) H 09/28/17 05:40 MCHC 32.9 g/dL (32.0-36.0) 09/28/17 05:40 RDW 14.7 % (12.0-15.0) 09/28/17 05:40 Plt Count 322 10^3/uL (130-450) 09/28/17 05:40 MPV 7.9 fL (7.4-11.4) 09/28/17 05:40 Neut # Not Reportable 09/28/17 05:40 Lymph # Not Reportable 09/28/17 05:40 [place] # Not Reportable 09/28/17 05:40 Eos # Not Reportable 09/28/17 05:40 Baso # Not Reportable 09/28/17 05:40 Absolute Nucleated RBC Not Reportable 09/28/17 05:40 Total Counted 100 09/28/17 05:40 Band Neuts % (Manual) 1 % (0-10) 09/28/17 05:40 Reactive Lymphs % (Man) 8 % 09/28/17 05:40 Abnorm Lymph % (Manual) 0 % 09/28/17 05:40 Nucleated RBC % Not Reportable 09/28/17 05:40 Neutrophils # (Manual) 5.6 10^3/uL (1.5-6.6) 09/28/17 05:40 Lymphocytes # (Manual) 1.6 10^3/uL (1.5-3.5) 09/28/17 05:40 Monocytes # (Manual) 1.0 10^3/uL (0.0-1.0) 09/28/17 05:40 Eosinophils # (Manual) 0.8 10^3/uL (0-0.7) H 09/28/17 05:40 Basophils # (Manual) 0.2 10^3/uL (0-0.1) H 09/28/17 05:40 Differential Comment MANUAL DIFFERENTIAL 09/28/17 05:40 Manual Slide Review Indicated 09/27/17 05:20 Platelet Estimate NORMAL (130-450,000) (NORMAL) 09/28/17 05:40 Platelet Morphology 1+ LARGE PLATELETS (NORMAL) 09/28/17 05:40 RBC Morph Micro Appear 1+ POLYCHROMASIA (NORMAL) 1+ ANISOCYTOSIS (NORMAL) 1+ MACROCYTOSIS (NORMAL) 09/28/17 05:40 RBC Morph Micro Appear 1+ POLYCHROMASIA (NORMAL) 1+ ANISOCYTOSIS (NORMAL) 1+ MACROCYTOSIS (NORMAL) 09/28/17 05:40 RBC Morph Micro Appear 1+ POLYCHROMASIA (NORMAL) 1+ ANISOCYTOSIS (NORMAL) 1+ MACROCYTOSIS (NORMAL) 09/28/17 05:40 Sodium 138 mmol/L (135-145) 09/28/17 05:40 Potassium 4.2 mmol/L (3.5-5.0) 09/28/17 05:40 Chloride 102 mmol/L (101-111) 09/28/17 05:40 Carbon Dioxide 29 mmol/L (21-32) 09/28/17 05:40 Anion Gap 7.0 (6-13) 09/28/17 05:40 BUN 32 mg/dL (6-20) H 09/28/17 05:40 Creatinine 0.8 mg/dL (0.6-1.2) 09/28/17 05:40 Estimated GFR (MDRD) 96 (>89) 09/28/17 05:40 Glucose 90 mg/dL (70-100) 09/28/17 05:40 Calcium 8.7 mg/dL (8.5-10.3) 09/28/17 05:40 Ionized Calcium NO 09/28/17 05:40 Phosphorus 4.9 mg/dL (2.5-4.6) H 09/27/17 05:20 Magnesium 2.3 mg/dL (1.7-2.8) 09/27/17 05:20 Iron 46 ug/dL (45-182) 09/28/17 08:59 TIBC 267 ug/dL (250-450) 09/28/17 08:59 % Saturation 17 % (20-50) L 09/28/17 08:59 Transferrin 191 mg/dL (180-329) 09/28/17 08:59 Ferritin 307.8 ng/mL (23.9-336.2) 09/28/17 05:40 Total Bilirubin 0.3 mg/dL (0.2-1.0) 09/28/17 05:40 AST 55 IU/L (10-42) H 09/28/17 05:40 ALT 87 IU/L (10-60) H 09/28/17 05:40 Alkaline Phosphatase 115 IU/L (42-121) 09/28/17 05:40 Total Protein 6.0 g/dL (6.7-8.2) L 09/28/17 05:40 Albumin 3.0 g/dL (3.2-5.5) L 09/28/17 05:40 Globulin 3.0 g/dL (2.1-4.2) 09/28/17 05:40 Albumin/Globulin Ratio 1.0 (1.0-2.2) 09/28/17 05:40 Lipase 32 U/L (22-51) 09/19/17 10:15 Vitamin B12 429 pg/mL (180-914) 09/20/17 08:58 Folate 15.35 ng/mL (5.90 - >24.8) 09/20/17 08:58 Urine Color DARK YELLOW 09/19/17 09:50 Urine Clarity CLEAR (CLEAR) 09/19/17 09:50 Urine pH 6.0 PH (5.0-7.5) 09/19/17 09:50 Ur Specific [place] 1.025 (1.002-1.030) 09/19/17 09:50 Urine Protein NEGATIVE mg/dL (NEGATIVE) 09/19/17 09:50 Urine Glucose (UA) NEGATIVE mg/dL (NEGATIVE) 09/19/17 09:50 Urine Ketones NEGATIVE mg/dL (NEGATIVE) 09/19/17 09:50 Urine Occult Blood NEGATIVE (NEGATIVE) 09/19/17 09:50 Urine Nitrite NEGATIVE (NEGATIVE) 09/19/17 09:50 Urine Bilirubin NEGATIVE (NEGATIVE) 09/19/17 09:50 Urine Urobilinogen 0.2 (NORMAL) E.U./dL (NORMAL) 09/19/17 09:50 Ur Leukocyte Esterase NEGATIVE (NEGATIVE) 09/19/17 09:50 Ur Microscopic Review NOT INDICATED 09/19/17 09:50 Urine Culture Comments NOT INDICATED 09/19/17 09:50
--- NOTE | 2017-10-06 11:12 | PROVIDER PROGRESS NOTE ---
Assessment/Plan - Problem List (1) Adult failure to thrive Assessment/Plan: Pt has gained 7 lbs since being here and getting proper nutrition and hydration. Continue a Regular diet. Social Work is still looking for Placement for this gentleman. (2) Anemia Qualifiers: Anemia type: unspecified type Qualified Code(s): D64.9 - Anemia, unspecified Assessment/Plan: Asymptomatic. (3) Skin rash Assessment/Plan: Stable with prn topical care. - Current Meds Current Meds: Current Medications Generic Name Dose Route Start Last Admin Trade Name Freq PRN Reason Stop Dose Admin Calamine 118 applic 09/22/17 04:25 09/24/17 21:41 Calamine TOP 118 applic PRN PRN Administration ITCHING Hydrocortisone 1 applic 09/28/17 11:00 10/05/17 21:05 Hydrocortisone TOP 1 applic BID EJ Administration Loperamide HCl 2 mg 09/21/17 00:17 09/21/17 10:52 Imodium PO 2 mg QID PRN Administration Diarrhea - Lab Result Fish Bone Diagrams: 09/28/17 05:40 09/28/17 05:40 Subjective - Subjective Patient Reports: No Complaints Nursing Reports: Other (Ambulating independantly with a walker in hallways. Able to make his bed.) Objective Vital Signs: Vital Signs - 24 hr 10/05/17 10/06/17 10/06/17 15:49 00:00 07:30 Temperature 37.1 C 36.5 C 36.4 C L Heart Rate [ 69 78 68 Brachial] Respiratory 20 18 18 Rate Blood Pressure 113/68 116/73 110/71 [Right Brachial artery] O2 Saturation 99 97 96 Oxygen O2 Source Room air I&O (Last 24 Hrs): Intake and Output Totals x24h 10/04/17 10/05/17 10/06/17 23:59 23:59 23:59 Intake Total 2440 2680 1580 Output Total 3400 1701 275 Balance -008 266 8775 General: Alert HEENT: Mucous membr. moist/pink Neck: Supple Neuro: Non Focal Cardiovascular: No murmurs Respiratory: No respiratory distress Abdomen: Soft Extremities: No edema - Results Results: Laboratory Results WBC 9.2 x10^3/uL (4.8-10.8) 09/28/17 05:40 RBC 3.03 10^6/uL (4.70-6.10) L 09/28/17 05:40 Hgb 10.4 g/dL (14.0-18.0) L 09/28/17 05:40 Hct 31.6 % (42.0-52.0) L 09/28/17 05:40 MCV 104.5 fL (80.0-94.0) H 09/28/17 05:40 MCH 34.4 pg (27.0-31.0) H 09/28/17 05:40 MCHC 32.9 g/dL (32.0-36.0) 09/28/17 05:40 RDW 14.7 % (12.0-15.0) 09/28/17 05:40 Plt Count 322 10^3/uL (130-450) 09/28/17 05:40 MPV 7.9 fL (7.4-11.4) 09/28/17 05:40 Neut # Not Reportable 09/28/17 05:40 Lymph # Not Reportable 09/28/17 05:40 [place] # Not Reportable 09/28/17 05:40 Eos # Not Reportable 09/28/17 05:40 Baso # Not Reportable 09/28/17 05:40 Absolute Nucleated RBC Not Reportable 09/28/17 05:40 Total Counted 100 09/28/17 05:40 Band Neuts % (Manual) 1 % (0-10) 09/28/17 05:40 Reactive Lymphs % (Man) 8 % 09/28/17 05:40 Abnorm Lymph % (Manual) 0 % 09/28/17 05:40 Nucleated RBC % Not Reportable 09/28/17 05:40 Neutrophils # (Manual) 5.6 10^3/uL (1.5-6.6) 09/28/17 05:40 Lymphocytes # (Manual) 1.6 10^3/uL (1.5-3.5) 09/28/17 05:40 Monocytes # (Manual) 1.0 10^3/uL (0.0-1.0) 09/28/17 05:40 Eosinophils # (Manual) 0.8 10^3/uL (0-0.7) H 09/28/17 05:40 Basophils # (Manual) 0.2 10^3/uL (0-0.1) H 09/28/17 05:40 Differential Comment MANUAL DIFFERENTIAL 09/28/17 05:40 Manual Slide Review Indicated 09/27/17 05:20 Platelet Estimate NORMAL (130-450,000) (NORMAL) 09/28/17 05:40 Platelet Morphology 1+ LARGE PLATELETS (NORMAL) 09/28/17 05:40 RBC Morph Micro Appear 1+ POLYCHROMASIA (NORMAL) 1+ ANISOCYTOSIS (NORMAL) 1+ MACROCYTOSIS (NORMAL) 09/28/17 05:40 RBC Morph Micro Appear 1+ POLYCHROMASIA (NORMAL) 1+ ANISOCYTOSIS (NORMAL) 1+ MACROCYTOSIS (NORMAL) 09/28/17 05:40 RBC Morph Micro Appear 1+ POLYCHROMASIA (NORMAL) 1+ ANISOCYTOSIS (NORMAL) 1+ MACROCYTOSIS (NORMAL) 09/28/17 05:40 Sodium 138 mmol/L (135-145) 09/28/17 05:40 Potassium 4.2 mmol/L (3.5-5.0) 09/28/17 05:40 Chloride 102 mmol/L (101-111) 09/28/17 05:40 Carbon Dioxide 29 mmol/L (21-32) 09/28/17 05:40 Anion Gap 7.0 (6-13) 09/28/17 05:40 BUN 32 mg/dL (6-20) H 09/28/17 05:40 Creatinine 0.8 mg/dL (0.6-1.2) 09/28/17 05:40 Estimated GFR (MDRD) 96 (>89) 09/28/17 05:40 Glucose 90 mg/dL (70-100) 09/28/17 05:40 Calcium 8.7 mg/dL (8.5-10.3) 09/28/17 05:40 Ionized Calcium NO 09/28/17 05:40 Phosphorus 4.9 mg/dL (2.5-4.6) H 09/27/17 05:20 Magnesium 2.3 mg/dL (1.7-2.8) 09/27/17 05:20 Iron 46 ug/dL (45-182) 09/28/17 08:59 TIBC 267 ug/dL (250-450) 09/28/17 08:59 % Saturation 17 % (20-50) L 09/28/17 08:59 Transferrin 191 mg/dL (180-329) 09/28/17 08:59 Ferritin 307.8 ng/mL (23.9-336.2) 09/28/17 05:40 Total Bilirubin 0.3 mg/dL (0.2-1.0) 09/28/17 05:40 AST 55 IU/L (10-42) H 09/28/17 05:40 ALT 87 IU/L (10-60) H 09/28/17 05:40 Alkaline Phosphatase 115 IU/L (42-121) 09/28/17 05:40 Total Protein 6.0 g/dL (6.7-8.2) L 09/28/17 05:40 Albumin 3.0 g/dL (3.2-5.5) L 09/28/17 05:40 Globulin 3.0 g/dL (2.1-4.2) 09/28/17 05:40 Albumin/Globulin Ratio 1.0 (1.0-2.2) 09/28/17 05:40 Lipase 32 U/L (22-51) 09/19/17 10:15 Vitamin B12 429 pg/mL (180-914) 09/20/17 08:58 Folate 15.35 ng/mL (5.90 - >24.8) 09/20/17 08:58 Urine Color DARK YELLOW 09/19/17 09:50 Urine Clarity CLEAR (CLEAR) 09/19/17 09:50 Urine pH 6.0 PH (5.0-7.5) 09/19/17 09:50 Ur Specific [place] 1.025 (1.002-1.030) 09/19/17 09:50 Urine Protein NEGATIVE mg/dL (NEGATIVE) 09/19/17 09:50 Urine Glucose (UA) NEGATIVE mg/dL (NEGATIVE) 09/19/17 09:50 Urine Ketones NEGATIVE mg/dL (NEGATIVE) 09/19/17 09:50 Urine Occult Blood NEGATIVE (NEGATIVE) 09/19/17 09:50 Urine Nitrite NEGATIVE (NEGATIVE) 09/19/17 09:50 Urine Bilirubin NEGATIVE (NEGATIVE) 09/19/17 09:50 Urine Urobilinogen 0.2 (NORMAL) E.U./dL (NORMAL) 09/19/17 09:50 Ur Leukocyte Esterase NEGATIVE (NEGATIVE) 09/19/17 09:50 Ur Microscopic Review NOT INDICATED 09/19/17 09:50 Urine Culture Comments NOT INDICATED 09/19/17 09:50
[2017-10-06] MEDS: HYDROCORTISONE 1% CREAM 28 GM TUBE TOP SCH ×2 (13:41→22:21)
[2017-10-07] MEDS: HYDROCORTISONE 1% CREAM 28 GM TUBE TOP SCH ×2 (07:46→22:04)
--- NOTE | 2017-10-07 12:55 | PROVIDER PROGRESS NOTE ---
Assessment/Plan - Problem List (1) Adult failure to thrive Assessment/Plan: Stable and awaiting placement. (2) Anemia Qualifiers: Anemia type: unspecified type Qualified Code(s): D64.9 - Anemia, unspecified Assessment/Plan: B12, Folate levels were checked and are adequate. Iron panel shows low end of normal Iron stores; he may need some Iron replacement but MCV is elevated not low. Will recheck CBC tomorrow. (3) Skin rash Assessment/Plan: Stable. - Current Meds Current Meds: Current Medications Generic Name Dose Route Start Last Admin Trade Name Freq PRN Reason Stop Dose Admin Calamine 118 applic 09/22/17 04:25 09/24/17 21:41 Calamine TOP 118 applic PRN PRN Administration ITCHING Hydrocortisone 1 applic 09/28/17 11:00 10/07/17 07:46 Hydrocortisone TOP 1 applic BID EJ Administration Loperamide HCl 2 mg 09/21/17 00:17 09/21/17 10:52 Imodium PO 2 mg QID PRN Administration Diarrhea - Lab Result Fish Bone Diagrams: 09/28/17 05:40 09/28/17 05:40 Subjective - Subjective Patient Reports: No Complaints Nursing Reports: No Complaints Objective Vital Signs: Vital Signs - 24 hr 10/06/17 10/07/17 10/07/17 16:31 00:41 07:54 Temperature 36.5 C 36.9 C 36.4 C L Heart Rate [ 85 82 81 Brachial] Respiratory 18 18 20 Rate Blood Pressure 112/76 115/73 114/65 [Right Brachial artery] O2 Saturation 96 94 96 Oxygen O2 Source Room air I&O (Last 24 Hrs): Intake and Output Totals x24h 10/05/17 10/06/17 10/07/17 23:59 23:59 23:59 Intake Total 2680 4600 Output Total 1701 275 Balance 979 4325 - Results Results: Laboratory Results WBC 9.2 x10^3/uL (4.8-10.8) 09/28/17 05:40 RBC 3.03 10^6/uL (4.70-6.10) L 09/28/17 05:40 Hgb 10.4 g/dL (14.0-18.0) L 09/28/17 05:40 Hct 31.6 % (42.0-52.0) L 09/28/17 05:40 MCV 104.5 fL (80.0-94.0) H 09/28/17 05:40 MCH 34.4 pg (27.0-31.0) H 09/28/17 05:40 MCHC 32.9 g/dL (32.0-36.0) 09/28/17 05:40 RDW 14.7 % (12.0-15.0) 09/28/17 05:40 Plt Count 322 10^3/uL (130-450) 09/28/17 05:40 MPV 7.9 fL (7.4-11.4) 09/28/17 05:40 Neut # Not Reportable 09/28/17 05:40 Lymph # Not Reportable 09/28/17 05:40 [place] # Not Reportable 09/28/17 05:40 Eos # Not Reportable 09/28/17 05:40 Baso # Not Reportable 09/28/17 05:40 Absolute Nucleated RBC Not Reportable 09/28/17 05:40 Total Counted 100 09/28/17 05:40 Band Neuts % (Manual) 1 % (0-10) 09/28/17 05:40 Reactive Lymphs % (Man) 8 % 09/28/17 05:40 Abnorm Lymph % (Manual) 0 % 09/28/17 05:40 Nucleated RBC % Not Reportable 09/28/17 05:40 Neutrophils # (Manual) 5.6 10^3/uL (1.5-6.6) 09/28/17 05:40 Lymphocytes # (Manual) 1.6 10^3/uL (1.5-3.5) 09/28/17 05:40 Monocytes # (Manual) 1.0 10^3/uL (0.0-1.0) 09/28/17 05:40 Eosinophils # (Manual) 0.8 10^3/uL (0-0.7) H 09/28/17 05:40 Basophils # (Manual) 0.2 10^3/uL (0-0.1) H 09/28/17 05:40 Differential Comment MANUAL DIFFERENTIAL 09/28/17 05:40 Manual Slide Review Indicated 09/27/17 05:20 Platelet Estimate NORMAL (130-450,000) (NORMAL) 09/28/17 05:40 Platelet Morphology 1+ LARGE PLATELETS (NORMAL) 09/28/17 05:40 RBC Morph Micro Appear 1+ POLYCHROMASIA (NORMAL) 1+ ANISOCYTOSIS (NORMAL) 1+ MACROCYTOSIS (NORMAL) 09/28/17 05:40 RBC Morph Micro Appear 1+ POLYCHROMASIA (NORMAL) 1+ ANISOCYTOSIS (NORMAL) 1+ MACROCYTOSIS (NORMAL) 09/28/17 05:40 RBC Morph Micro Appear 1+ POLYCHROMASIA (NORMAL) 1+ ANISOCYTOSIS (NORMAL) 1+ MACROCYTOSIS (NORMAL) 09/28/17 05:40 Sodium 138 mmol/L (135-145) 09/28/17 05:40 Potassium 4.2 mmol/L (3.5-5.0) 09/28/17 05:40 Chloride 102 mmol/L (101-111) 09/28/17 05:40 Carbon Dioxide 29 mmol/L (21-32) 09/28/17 05:40 Anion Gap 7.0 (6-13) 09/28/17 05:40 BUN 32 mg/dL (6-20) H 09/28/17 05:40 Creatinine 0.8 mg/dL (0.6-1.2) 09/28/17 05:40 Estimated GFR (MDRD) 96 (>89) 09/28/17 05:40 Glucose 90 mg/dL (70-100) 09/28/17 05:40 Calcium 8.7 mg/dL (8.5-10.3) 09/28/17 05:40 Ionized Calcium NO 09/28/17 05:40 Phosphorus 4.9 mg/dL (2.5-4.6) H 09/27/17 05:20 Magnesium 2.3 mg/dL (1.7-2.8) 09/27/17 05:20 Iron 46 ug/dL (45-182) 09/28/17 08:59 TIBC 267 ug/dL (250-450) 09/28/17 08:59 % Saturation 17 % (20-50) L 09/28/17 08:59 Transferrin 191 mg/dL (180-329) 09/28/17 08:59 Ferritin 307.8 ng/mL (23.9-336.2) 09/28/17 05:40 Total Bilirubin 0.3 mg/dL (0.2-1.0) 09/28/17 05:40 AST 55 IU/L (10-42) H 09/28/17 05:40 ALT 87 IU/L (10-60) H 09/28/17 05:40 Alkaline Phosphatase 115 IU/L (42-121) 09/28/17 05:40 Total Protein 6.0 g/dL (6.7-8.2) L 09/28/17 05:40 Albumin 3.0 g/dL (3.2-5.5) L 09/28/17 05:40 Globulin 3.0 g/dL (2.1-4.2) 09/28/17 05:40 Albumin/Globulin Ratio 1.0 (1.0-2.2) 09/28/17 05:40 Lipase 32 U/L (22-51) 09/19/17 10:15 Vitamin B12 429 pg/mL (180-914) 09/20/17 08:58 Folate 15.35 ng/mL (5.90 - >24.8) 09/20/17 08:58 Urine Color DARK YELLOW 09/19/17 09:50 Urine Clarity CLEAR (CLEAR) 09/19/17 09:50 Urine pH 6.0 PH (5.0-7.5) 09/19/17 09:50 Ur Specific [place] 1.025 (1.002-1.030) 09/19/17 09:50 Urine Protein NEGATIVE mg/dL (NEGATIVE) 09/19/17 09:50 Urine Glucose (UA) NEGATIVE mg/dL (NEGATIVE) 09/19/17 09:50 Urine Ketones NEGATIVE mg/dL (NEGATIVE) 09/19/17 09:50 Urine Occult Blood NEGATIVE (NEGATIVE) 09/19/17 09:50 Urine Nitrite NEGATIVE (NEGATIVE) 09/19/17 09:50 Urine Bilirubin NEGATIVE (NEGATIVE) 09/19/17 09:50 Urine Urobilinogen 0.2 (NORMAL) E.U./dL (NORMAL) 09/19/17 09:50 Ur Leukocyte Esterase NEGATIVE (NEGATIVE) 09/19/17 09:50 Ur Microscopic Review NOT INDICATED 09/19/17 09:50 Urine Culture Comments NOT INDICATED 09/19/17 09:50
[2017-10-08 05:13] LABS: BASOPHILS # (AUTO) 0.2 10^3/uL (0.0-0.1); BASOPHILS % (AUTO) 1.6 %; EOSINOPHILS # (AUTO) 0.5 10^3/uL (0.0-0.7); EOSINOPHILS % (AUTO) 4.7 %; HGB - HEMOGLOBIN 10.9 g/dL (14.0-18.0); LYMPHOCYTES # (AUTO) 1.8 10^3/uL (1.5-3.5); LYMPHOCYTES % (AUTO) 18.5 %; MEAN CORPUSCULAR HEMOGLOBIN 34.9 pg (27.0-31.0); MEAN CORPUSCULAR HGB CONC 33.4 g/dL (32.0-36.0); MEAN CORPUSCULAR VOLUME 104.5 fL (80.0-94.0); MEAN PLATELET VOLUME 7.1 fL (7.4-11.4); MONOCYTES # (AUTO) 1.2 10^3/uL (0.0-1.0); MONOCYTES % (AUTO) 12.4 %; NEUTROPHILS # (AUTO) 6.3 10^3/uL (1.5-6.6); NEUTROPHILS % (AUTO) 62.8 %; PLT - PLATELET COUNT 405 10^3/uL (130-450); RED BLOOD COUNT 3.11 10^6/uL (4.70-6.10); RED CELL DISTRIBUTION WIDTH 14.1 % (12.0-15.0)
[2017-10-08 05:22] LABS: CALCIUM 8.9 mg/dL (8.5-10.3); CREATININE 0.7 mg/dL (0.6-1.2)
[2017-10-08] MEDS: HYDROCORTISONE 1% CREAM 28 GM TUBE TOP SCH ×2 (08:13→21:37)
--- NOTE | 2017-10-08 16:51 | PROVIDER PROGRESS NOTE ---
Assessment/Plan - Problem List (1) Adult failure to thrive Assessment/Plan: Stable and awaiting placement. (2) Anemia Qualifiers: Anemia type: unspecified type Qualified Code(s): D64.9 - Anemia, unspecified Assessment/Plan: B12, Folate levels were checked and are adequate. Iron panel shows low end of normal Iron stores; he may need some Iron replacement but MCV is elevated not low. CBC stable (3) Skin rash Assessment/Plan: Stable. - Current Meds Current Meds: Current Medications Generic Name Dose Route Start Last Admin Trade Name Freq PRN Reason Stop Dose Admin Calamine 118 applic 09/22/17 04:25 09/24/17 21:41 Calamine TOP 118 applic PRN PRN Administration ITCHING Hydrocortisone 1 applic 09/28/17 11:00 10/08/17 08:13 Hydrocortisone TOP 1 applic BID EJ Administration Loperamide HCl 2 mg 09/21/17 00:17 09/21/17 10:52 Imodium PO 2 mg QID PRN Administration Diarrhea - Lab Result Lab results reviewed: Yes Fish Bone Diagrams: 10/08/17 05:04 10/08/17 05:04 - Diagnostic Imaging Results Diagnostic Imaging Results: Final report reviewed - Additional Planning Condition/Complexity: Stable Plan Discussed with:: Patient Time Spent: 15-30 minutes Subjective - Subjective Patient Reports: Resting Comfortably, No Complaints Nursing Reports: No Complaints Objective Vital Signs: Vital Signs - 24 hr 10/08/17 07:43 Temperature 37.0 C Heart Rate [ 72 Brachial] Respiratory 18 Rate Blood Pressure 110/76 [Right Brachial artery] O2 Saturation 95 Oxygen O2 Source Room air I&O (Last 24 Hrs): Intake and Output Totals x24h 10/06/17 10/07/17 10/08/17 23:59 23:59 23:59 Intake Total 4600 930 400 Output Total 275 Balance 4325 930 400 General: Alert, Oriented x3, Cooperative, No acute distress HEENT: Atraumatic, PERRLA, EOMI, Mucous membr. moist/pink Neck: Supple, No JVD, No thyromegaly, +2 carotid pulse wo bruit, No LAD Lymphatic: no adenopathy Neuro: Alert, Non Focal, CN 2-12 Grossly Intact, Oriented Times 3 Cardiovascular: Regular rate, Normal S1, Normal S2, No murmurs Respiratory: Chest non-tender, No respiratory distress, Breath sounds nml Abdomen: Normal bowel sounds, Soft, No tenderness, No hepatospenomegaly Extremities: No clubbing, No cyanosis, No edema, Normal pulses Skin: No rashes, No breakdown - Results Results: Laboratory Results WBC 10.0 x10^3/uL (4.8-10.8) 10/08/17 05:04 RBC 3.11 10^6/uL (4.70-6.10) L 10/08/17 05:04 Hgb 10.9 g/dL (14.0-18.0) L 10/08/17 05:04 Hct 32.5 % (42.0-52.0) L 10/08/17 05:04 MCV 104.5 fL (80.0-94.0) H 10/08/17 05:04 MCH 34.9 pg (27.0-31.0) H 10/08/17 05:04 MCHC 33.4 g/dL (32.0-36.0) 10/08/17 05:04 RDW 14.1 % (12.0-15.0) 10/08/17 05:04 Plt Count 405 10^3/uL (130-450) 10/08/17 05:04 MPV 7.1 fL (7.4-11.4) L 10/08/17 05:04 Neut # 6.3 10^3/uL (1.5-6.6) 10/08/17 05:04 Lymph # 1.8 10^3/uL (1.5-3.5) 10/08/17 05:04 [place] # 1.2 10^3/uL (0.0-1.0) H 10/08/17 05:04 Eos # 0.5 10^3/uL (0.0-0.7) 10/08/17 05:04 Baso # 0.2 10^3/uL (0.0-0.1) H 10/08/17 05:04 Absolute Nucleated RBC 0.00 x10^3/uL 10/08/17 05:04 Total Counted 100 09/28/17 05:40 Band Neuts % (Manual) 1 % (0-10) 09/28/17 05:40 Reactive Lymphs % (Man) 8 % 09/28/17 05:40 Abnorm Lymph % (Manual) 0 % 09/28/17 05:40 Nucleated RBC % 0.0 /100WBC 10/08/17 05:04 Neutrophils # (Manual) 5.6 10^3/uL (1.5-6.6) 09/28/17 05:40 Lymphocytes # (Manual) 1.6 10^3/uL (1.5-3.5) 09/28/17 05:40 Monocytes # (Manual) 1.0 10^3/uL (0.0-1.0) 09/28/17 05:40 Eosinophils # (Manual) 0.8 10^3/uL (0-0.7) H 09/28/17 05:40 Basophils # (Manual) 0.2 10^3/uL (0-0.1) H 09/28/17 05:40 Differential Comment MANUAL DIFFERENTIAL 09/28/17 05:40 Manual Slide Review Indicated 09/27/17 05:20 Platelet Estimate NORMAL (130-450,000) (NORMAL) 09/28/17 05:40 Platelet Morphology 1+ LARGE PLATELETS (NORMAL) 09/28/17 05:40 RBC Morph Micro Appear 1+ POLYCHROMASIA (NORMAL) 1+ ANISOCYTOSIS (NORMAL) 1+ MACROCYTOSIS (NORMAL) 09/28/17 05:40 RBC Morph Micro Appear 1+ POLYCHROMASIA (NORMAL) 1+ ANISOCYTOSIS (NORMAL) 1+ MACROCYTOSIS (NORMAL) 09/28/17 05:40 RBC Morph Micro Appear 1+ POLYCHROMASIA (NORMAL) 1+ ANISOCYTOSIS (NORMAL) 1+ MACROCYTOSIS (NORMAL) 09/28/17 05:40 Sodium 138 mmol/L (135-145) 10/08/17 05:04 Potassium 4.1 mmol/L (3.5-5.0) 10/08/17 05:04 Chloride 102 mmol/L (101-111) 10/08/17 05:04 Carbon Dioxide 29 mmol/L (21-32) 10/08/17 05:04 Anion Gap 7.0 (6-13) 10/08/17 05:04 BUN 33 mg/dL (6-20) H 10/08/17 05:04 Creatinine 0.7 mg/dL (0.6-1.2) 10/08/17 05:04 Estimated GFR (MDRD) 112 (>89) 10/08/17 05:04 Glucose 101 mg/dL (70-100) H 10/08/17 05:04 Calcium 8.9 mg/dL (8.5-10.3) 10/08/17 05:04 Ionized Calcium NO 09/28/17 05:40 Phosphorus 4.9 mg/dL (2.5-4.6) H 09/27/17 05:20 Magnesium 2.3 mg/dL (1.7-2.8) 09/27/17 05:20 Iron 46 ug/dL (45-182) 09/28/17 08:59 TIBC 267 ug/dL (250-450) 09/28/17 08:59 % Saturation 17 % (20-50) L 09/28/17 08:59 Transferrin 191 mg/dL (180-329) 09/28/17 08:59 Ferritin 307.8 ng/mL (23.9-336.2) 09/28/17 05:40 Total Bilirubin 0.3 mg/dL (0.2-1.0) 09/28/17 05:40 AST 55 IU/L (10-42) H 09/28/17 05:40 ALT 87 IU/L (10-60) H 09/28/17 05:40 Alkaline Phosphatase 115 IU/L (42-121) 09/28/17 05:40 Total Protein 6.0 g/dL (6.7-8.2) L 09/28/17 05:40 Albumin 3.0 g/dL (3.2-5.5) L 09/28/17 05:40 Globulin 3.0 g/dL (2.1-4.2) 09/28/17 05:40 Albumin/Globulin Ratio 1.0 (1.0-2.2) 09/28/17 05:40 Lipase 32 U/L (22-51) 09/19/17 10:15 Vitamin B12 429 pg/mL (180-914) 09/20/17 08:58 Folate 15.35 ng/mL (5.90 - >24.8) 09/20/17 08:58 Urine Color DARK YELLOW 09/19/17 09:50 Urine Clarity CLEAR (CLEAR) 09/19/17 09:50 Urine pH 6.0 PH (5.0-7.5) 09/19/17 09:50 Ur Specific Muse 1.025 (1.002-1.030) 09/19/17 09:50 Urine Protein NEGATIVE mg/dL (NEGATIVE) 09/19/17 09:50 Urine Glucose (UA) NEGATIVE mg/dL (NEGATIVE) 09/19/17 09:50 Urine Ketones NEGATIVE mg/dL (NEGATIVE) 09/19/17 09:50 Urine Occult Blood NEGATIVE (NEGATIVE) 09/19/17 09:50 Urine Nitrite NEGATIVE (NEGATIVE) 09/19/17 09:50 Urine Bilirubin NEGATIVE (NEGATIVE) 09/19/17 09:50 Urine Urobilinogen 0.2 (NORMAL) E.U./dL (NORMAL) 09/19/17 09:50 Ur Leukocyte Esterase NEGATIVE (NEGATIVE) 09/19/17 09:50 Ur Microscopic Review NOT INDICATED 09/19/17 09:50 Urine Culture Comments NOT INDICATED 09/19/17 09:50
[2017-10-09] MEDS: HYDROCORTISONE 1% CREAM 28 GM TUBE TOP SCH ×2 (11:37→23:45)
--- NOTE | 2017-10-09 14:50 | PROVIDER PROGRESS NOTE ---
Assessment/Plan - Problem List (1) Adult failure to thrive Assessment/Plan: Social work has found patient an adult family home. The patient will be placed at [facility] here in [place] on Saturday barring any set backs. - Current Meds Current Meds: Current Medications Generic Name Dose Route Start Last Admin Trade Name Freq PRN Reason Stop Dose Admin Calamine 118 applic 09/22/17 04:25 09/24/17 21:41 Calamine TOP 118 applic PRN PRN Administration ITCHING Hydrocortisone 1 applic 09/28/17 11:00 10/09/17 11:37 Hydrocortisone TOP 1 applic BID EJ Administration Loperamide HCl 2 mg 09/21/17 00:17 09/21/17 10:52 Imodium PO 2 mg QID PRN Administration Diarrhea - Lab Result Lab results reviewed: Yes Fish Bone Diagrams: 10/08/17 05:04 10/08/17 05:04 - Additional Planning Condition/Complexity: Stable Plan Discussed with:: Patient Time Spent: Less than 15 minutes Subjective - Subjective Patient Reports: Resting Comfortably, No Complaints Nursing Reports: No Complaints Objective Vital Signs: Vital Signs - 24 hr 10/09/17 09:00 Temperature 36.4 C L Heart Rate [ 83 Brachial] Respiratory 18 Rate Blood Pressure 104/67 [Right Brachial artery] O2 Saturation 96 Oxygen O2 Source Room air I&O (Last 24 Hrs): Intake and Output Totals x24h 10/07/17 10/08/17 10/09/17 23:59 23:59 23:59 Intake Total 930 1360 1440 Balance 930 1360 1440 General: Alert, Oriented x3, Cooperative, No acute distress HEENT: Atraumatic, PERRLA, EOMI, Mucous membr. moist/pink Neck: Supple, No JVD, No thyromegaly, +2 carotid pulse wo bruit, No LAD Lymphatic: no adenopathy Neuro: Alert, CN 2-12 Grossly Intact, Oriented Times 3 Cardiovascular: Regular rate, Normal S1, Normal S2, No murmurs Respiratory: Chest non-tender, No respiratory distress, Breath sounds nml Abdomen: Normal bowel sounds, Soft, No tenderness, No hepatospenomegaly, No masses Extremities: No clubbing, No cyanosis, No edema, Normal pulses, No tenderness/ swelling Skin: No breakdown, No significant lesion Comments/Notes: Rash on back improving - Results Results: Laboratory Results WBC 10.0 x10^3/uL (4.8-10.8) 10/08/17 05:04 RBC 3.11 10^6/uL (4.70-6.10) L 10/08/17 05:04 Hgb 10.9 g/dL (14.0-18.0) L 10/08/17 05:04 Hct 32.5 % (42.0-52.0) L 10/08/17 05:04 MCV 104.5 fL (80.0-94.0) H 10/08/17 05:04 MCH 34.9 pg (27.0-31.0) H 10/08/17 05:04 MCHC 33.4 g/dL (32.0-36.0) 10/08/17 05:04 RDW 14.1 % (12.0-15.0) 10/08/17 05:04 Plt Count 405 10^3/uL (130-450) 10/08/17 05:04 MPV 7.1 fL (7.4-11.4) L 10/08/17 05:04 Neut # 6.3 10^3/uL (1.5-6.6) 10/08/17 05:04 Lymph # 1.8 10^3/uL (1.5-3.5) 10/08/17 05:04 [place] # 1.2 10^3/uL (0.0-1.0) H 10/08/17 05:04 Eos # 0.5 10^3/uL (0.0-0.7) 10/08/17 05:04 Baso # 0.2 10^3/uL (0.0-0.1) H 10/08/17 05:04 Absolute Nucleated RBC 0.00 x10^3/uL 10/08/17 05:04 Total Counted 100 09/28/17 05:40 Band Neuts % (Manual) 1 % (0-10) 09/28/17 05:40 Reactive Lymphs % (Man) 8 % 09/28/17 05:40 Abnorm Lymph % (Manual) 0 % 09/28/17 05:40 Nucleated RBC % 0.0 /100WBC 10/08/17 05:04 Neutrophils # (Manual) 5.6 10^3/uL (1.5-6.6) 09/28/17 05:40 Lymphocytes # (Manual) 1.6 10^3/uL (1.5-3.5) 09/28/17 05:40 Monocytes # (Manual) 1.0 10^3/uL (0.0-1.0) 09/28/17 05:40 Eosinophils # (Manual) 0.8 10^3/uL (0-0.7) H 09/28/17 05:40 Basophils # (Manual) 0.2 10^3/uL (0-0.1) H 09/28/17 05:40 Differential Comment MANUAL DIFFERENTIAL 09/28/17 05:40 Manual Slide Review Indicated 09/27/17 05:20 Platelet Estimate NORMAL (130-450,000) (NORMAL) 09/28/17 05:40 Platelet Morphology 1+ LARGE PLATELETS (NORMAL) 09/28/17 05:40 RBC Morph Micro Appear 1+ POLYCHROMASIA (NORMAL) 1+ ANISOCYTOSIS (NORMAL) 1+ MACROCYTOSIS (NORMAL) 09/28/17 05:40 RBC Morph Micro Appear 1+ POLYCHROMASIA (NORMAL) 1+ ANISOCYTOSIS (NORMAL) 1+ MACROCYTOSIS (NORMAL) 09/28/17 05:40 RBC Morph Micro Appear 1+ POLYCHROMASIA (NORMAL) 1+ ANISOCYTOSIS (NORMAL) 1+ MACROCYTOSIS (NORMAL) 09/28/17 05:40 Sodium 138 mmol/L (135-145) 10/08/17 05:04 Potassium 4.1 mmol/L (3.5-5.0) 10/08/17 05:04 Chloride 102 mmol/L (101-111) 10/08/17 05:04 Carbon Dioxide 29 mmol/L (21-32) 10/08/17 05:04 Anion Gap 7.0 (6-13) 10/08/17 05:04 BUN 33 mg/dL (6-20) H 10/08/17 05:04 Creatinine 0.7 mg/dL (0.6-1.2) 10/08/17 05:04 Estimated GFR (MDRD) 112 (>89) 10/08/17 05:04 Glucose 101 mg/dL (70-100) H 10/08/17 05:04 Calcium 8.9 mg/dL (8.5-10.3) 10/08/17 05:04 Ionized Calcium NO 09/28/17 05:40 Phosphorus 4.9 mg/dL (2.5-4.6) H 09/27/17 05:20 Magnesium 2.3 mg/dL (1.7-2.8) 09/27/17 05:20 Iron 46 ug/dL (45-182) 09/28/17 08:59 TIBC 267 ug/dL (250-450) 09/28/17 08:59 % Saturation 17 % (20-50) L 09/28/17 08:59 Transferrin 191 mg/dL (180-329) 09/28/17 08:59 Ferritin 307.8 ng/mL (23.9-336.2) 09/28/17 05:40 Total Bilirubin 0.3 mg/dL (0.2-1.0) 09/28/17 05:40 AST 55 IU/L (10-42) H 09/28/17 05:40 ALT 87 IU/L (10-60) H 09/28/17 05:40 Alkaline Phosphatase 115 IU/L (42-121) 09/28/17 05:40 Total Protein 6.0 g/dL (6.7-8.2) L 09/28/17 05:40 Albumin 3.0 g/dL (3.2-5.5) L 09/28/17 05:40 Globulin 3.0 g/dL (2.1-4.2) 09/28/17 05:40 Albumin/Globulin Ratio 1.0 (1.0-2.2) 09/28/17 05:40 Lipase 32 U/L (22-51) 09/19/17 10:15 Vitamin B12 429 pg/mL (180-914) 09/20/17 08:58 Folate 15.35 ng/mL (5.90 - >24.8) 09/20/17 08:58 Urine Color DARK YELLOW 09/19/17 09:50 Urine Clarity CLEAR (CLEAR) 09/19/17 09:50 Urine pH 6.0 PH (5.0-7.5) 09/19/17 09:50 Ur Specific [place] 1.025 (1.002-1.030) 09/19/17 09:50 Urine Protein NEGATIVE mg/dL (NEGATIVE) 09/19/17 09:50 Urine Glucose (UA) NEGATIVE mg/dL (NEGATIVE) 09/19/17 09:50 Urine Ketones NEGATIVE mg/dL (NEGATIVE) 09/19/17 09:50 Urine Occult Blood NEGATIVE (NEGATIVE) 09/19/17 09:50 Urine Nitrite NEGATIVE (NEGATIVE) 09/19/17 09:50 Urine Bilirubin NEGATIVE (NEGATIVE) 09/19/17 09:50 Urine Urobilinogen 0.2 (NORMAL) E.U./dL (NORMAL) 09/19/17 09:50 Ur Leukocyte Esterase NEGATIVE (NEGATIVE) 09/19/17 09:50 Ur Microscopic Review NOT INDICATED 09/19/17 09:50 Urine Culture Comments NOT INDICATED 09/19/17 09:50
[2017-10-10] MEDS: HYDROCORTISONE 1% CREAM 28 GM TUBE TOP SCH ×2 (12:37→23:53)
--- NOTE | 2017-10-10 15:25 | PROVIDER PROGRESS NOTE ---
Assessment/Plan - Problem List (1) Adult failure to thrive Assessment/Plan: Social work has found patient an adult family home. The patient will be placed at [facility] here in [place] on Saturday barring any set backs. - Current Meds Current Meds: Current Medications Generic Name Dose Route Start Last Admin Trade Name Freq PRN Reason Stop Dose Admin Calamine 118 applic 09/22/17 04:25 09/24/17 21:41 Calamine TOP 118 applic PRN PRN Administration ITCHING Hydrocortisone 1 applic 09/28/17 11:00 10/10/17 12:37 Hydrocortisone TOP 1 applic BID EJ Administration Loperamide HCl 2 mg 09/21/17 00:17 09/21/17 10:52 Imodium PO 2 mg QID PRN Administration Diarrhea - Lab Result Lab results reviewed: Yes Fish Bone Diagrams: 10/08/17 05:04 10/08/17 05:04 - Additional Planning Condition/Complexity: Stable Time Spent: Less than 15 minutes Subjective - Subjective Patient Reports: Resting Comfortably, No Complaints Nursing Reports: No Complaints Objective Vital Signs: Vital Signs - 24 hr 10/09/17 15:22 Temperature 36.6 C Heart Rate [ 81 Brachial] Respiratory 20 Rate Blood Pressure 120/69 [Right Brachial artery] O2 Saturation 96 Oxygen O2 Source Room air I&O (Last 24 Hrs): Intake and Output Totals x24h 10/08/17 10/09/17 10/10/17 23:59 23:59 23:59 Intake Total 1360 2760 1040 Output Total 975 Balance 1360 2760 65 General: Alert, Oriented x3, Cooperative, No acute distress HEENT: Atraumatic, PERRLA, EOMI Neck: Supple, No JVD, No thyromegaly, +2 carotid pulse wo bruit, No LAD Lymphatic: no adenopathy Neuro: Alert, CN 2-12 Grossly Intact, Oriented Times 3 Cardiovascular: Regular rate, Normal S1, Normal S2, No murmurs Respiratory: Chest non-tender, No respiratory distress, Breath sounds nml Abdomen: Normal bowel sounds, Soft, No tenderness, No hepatospenomegaly, No masses Extremities: No clubbing, No cyanosis, No edema, Normal pulses, No tenderness/ swelling Skin: No breakdown, No significant lesion Comments/Notes: Rash on back is stable - Results Results: Laboratory Results WBC 10.0 x10^3/uL (4.8-10.8) 10/08/17 05:04 RBC 3.11 10^6/uL (4.70-6.10) L 10/08/17 05:04 Hgb 10.9 g/dL (14.0-18.0) L 10/08/17 05:04 Hct 32.5 % (42.0-52.0) L 10/08/17 05:04 MCV 104.5 fL (80.0-94.0) H 10/08/17 05:04 MCH 34.9 pg (27.0-31.0) H 10/08/17 05:04 MCHC 33.4 g/dL (32.0-36.0) 10/08/17 05:04 RDW 14.1 % (12.0-15.0) 10/08/17 05:04 Plt Count 405 10^3/uL (130-450) 10/08/17 05:04 MPV 7.1 fL (7.4-11.4) L 10/08/17 05:04 Neut # 6.3 10^3/uL (1.5-6.6) 10/08/17 05:04 Lymph # 1.8 10^3/uL (1.5-3.5) 10/08/17 05:04 [place] # 1.2 10^3/uL (0.0-1.0) H 10/08/17 05:04 Eos # 0.5 10^3/uL (0.0-0.7) 10/08/17 05:04 Baso # 0.2 10^3/uL (0.0-0.1) H 10/08/17 05:04 Absolute Nucleated RBC 0.00 x10^3/uL 10/08/17 05:04 Total Counted 100 09/28/17 05:40 Band Neuts % (Manual) 1 % (0-10) 09/28/17 05:40 Reactive Lymphs % (Man) 8 % 09/28/17 05:40 Abnorm Lymph % (Manual) 0 % 09/28/17 05:40 Nucleated RBC % 0.0 /100WBC 10/08/17 05:04 Neutrophils # (Manual) 5.6 10^3/uL (1.5-6.6) 09/28/17 05:40 Lymphocytes # (Manual) 1.6 10^3/uL (1.5-3.5) 09/28/17 05:40 Monocytes # (Manual) 1.0 10^3/uL (0.0-1.0) 09/28/17 05:40 Eosinophils # (Manual) 0.8 10^3/uL (0-0.7) H 09/28/17 05:40 Basophils # (Manual) 0.2 10^3/uL (0-0.1) H 09/28/17 05:40 Differential Comment MANUAL DIFFERENTIAL 09/28/17 05:40 Manual Slide Review Indicated 09/27/17 05:20 Platelet Estimate NORMAL (130-450,000) (NORMAL) 09/28/17 05:40 Platelet Morphology 1+ LARGE PLATELETS (NORMAL) 09/28/17 05:40 RBC Morph Micro Appear 1+ POLYCHROMASIA (NORMAL) 1+ ANISOCYTOSIS (NORMAL) 1+ MACROCYTOSIS (NORMAL) 09/28/17 05:40 RBC Morph Micro Appear 1+ POLYCHROMASIA (NORMAL) 1+ ANISOCYTOSIS (NORMAL) 1+ MACROCYTOSIS (NORMAL) 09/28/17 05:40 RBC Morph Micro Appear 1+ POLYCHROMASIA (NORMAL) 1+ ANISOCYTOSIS (NORMAL) 1+ MACROCYTOSIS (NORMAL) 09/28/17 05:40 Sodium 138 mmol/L (135-145) 10/08/17 05:04 Potassium 4.1 mmol/L (3.5-5.0) 10/08/17 05:04 Chloride 102 mmol/L (101-111) 10/08/17 05:04 Carbon Dioxide 29 mmol/L (21-32) 10/08/17 05:04 Anion Gap 7.0 (6-13) 10/08/17 05:04 BUN 33 mg/dL (6-20) H 10/08/17 05:04 Creatinine 0.7 mg/dL (0.6-1.2) 10/08/17 05:04 Estimated GFR (MDRD) 112 (>89) 10/08/17 05:04 Glucose 101 mg/dL (70-100) H 10/08/17 05:04 Calcium 8.9 mg/dL (8.5-10.3) 10/08/17 05:04 Ionized Calcium NO 09/28/17 05:40 Phosphorus 4.9 mg/dL (2.5-4.6) H 09/27/17 05:20 Magnesium 2.3 mg/dL (1.7-2.8) 09/27/17 05:20 Iron 46 ug/dL (45-182) 09/28/17 08:59 TIBC 267 ug/dL (250-450) 09/28/17 08:59 % Saturation 17 % (20-50) L 09/28/17 08:59 Transferrin 191 mg/dL (180-329) 09/28/17 08:59 Ferritin 307.8 ng/mL (23.9-336.2) 09/28/17 05:40 Total Bilirubin 0.3 mg/dL (0.2-1.0) 09/28/17 05:40 AST 55 IU/L (10-42) H 09/28/17 05:40 ALT 87 IU/L (10-60) H 09/28/17 05:40 Alkaline Phosphatase 115 IU/L (42-121) 09/28/17 05:40 Total Protein 6.0 g/dL (6.7-8.2) L 09/28/17 05:40 Albumin 3.0 g/dL (3.2-5.5) L 09/28/17 05:40 Globulin 3.0 g/dL (2.1-4.2) 09/28/17 05:40 Albumin/Globulin Ratio 1.0 (1.0-2.2) 09/28/17 05:40 Lipase 32 U/L (22-51) 09/19/17 10:15 Vitamin B12 429 pg/mL (180-914) 09/20/17 08:58 Folate 15.35 ng/mL (5.90 - >24.8) 09/20/17 08:58 Urine Color DARK YELLOW 09/19/17 09:50 Urine Clarity CLEAR (CLEAR) 09/19/17 09:50 Urine pH 6.0 PH (5.0-7.5) 09/19/17 09:50 Ur Specific [place] 1.025 (1.002-1.030) 09/19/17 09:50 Urine Protein NEGATIVE mg/dL (NEGATIVE) 09/19/17 09:50 Urine Glucose (UA) NEGATIVE mg/dL (NEGATIVE) 09/19/17 09:50 Urine Ketones NEGATIVE mg/dL (NEGATIVE) 09/19/17 09:50 Urine Occult Blood NEGATIVE (NEGATIVE) 09/19/17 09:50 Urine Nitrite NEGATIVE (NEGATIVE) 09/19/17 09:50 Urine Bilirubin NEGATIVE (NEGATIVE) 09/19/17 09:50 Urine Urobilinogen 0.2 (NORMAL) E.U./dL (NORMAL) 09/19/17 09:50 Ur Leukocyte Esterase NEGATIVE (NEGATIVE) 09/19/17 09:50 Ur Microscopic Review NOT INDICATED 09/19/17 09:50 Urine Culture Comments NOT INDICATED 09/19/17 09:50
[2017-10-11] MEDS: HYDROCORTISONE 1% CREAM 28 GM TUBE TOP SCH ×2 (10:29→21:21)
--- NOTE | 2017-10-11 14:46 | PROVIDER PROGRESS NOTE ---
Assessment/Plan - Problem List (1) Adult failure to thrive Assessment/Plan: Social work has found patient an adult family home. The patient will be placed at [facility] here in [place] on Saturday barring any set backs. - Current Meds Current Meds: Current Medications Generic Name Dose Route Start Last Admin Trade Name Freq PRN Reason Stop Dose Admin Calamine 118 applic 09/22/17 04:25 09/24/17 21:41 Calamine TOP 118 applic PRN PRN Administration ITCHING Hydrocortisone 1 applic 09/28/17 11:00 10/11/17 10:29 Hydrocortisone TOP 1 applic BID EJ Administration Loperamide HCl 2 mg 09/21/17 00:17 09/21/17 10:52 Imodium PO 2 mg QID PRN Administration Diarrhea - Lab Result Lab results reviewed: Yes Fish Bone Diagrams: 10/08/17 05:04 10/08/17 05:04 - Additional Planning Condition/Complexity: Stable Plan Discussed with:: Patient Time Spent: Less than 15 minutes Subjective - Subjective Patient Reports: Resting Comfortably, No Complaints (He cannot wait to get out of here on Saturday) Nursing Reports: No Complaints Objective Vital Signs: Vital Signs - 24 hr 10/10/17 10/11/17 15:25 07:57 Temperature 36.6 C 36.9 C Heart Rate [ 83 85 Brachial] Respiratory 20 18 Rate Blood Pressure 118/68 116/78 [Right Brachial artery] O2 Saturation 97 97 Oxygen O2 Source Room air I&O (Last 24 Hrs): Intake and Output Totals x24h 10/09/17 10/10/17 10/11/17 23:59 23:59 23:59 Intake Total 2760 2837 2900 Output Total 975 Balance 2760 1862 2900 General: Alert, Oriented x3, Cooperative, No acute distress HEENT: Atraumatic, PERRLA, EOMI Neck: Supple, No JVD, No thyromegaly, +2 carotid pulse wo bruit, No LAD Lymphatic: no adenopathy Neuro: Alert, CN 2-12 Grossly Intact, Oriented Times 3 Cardiovascular: Regular rate, Normal S1, Normal S2, No murmurs Respiratory: Chest non-tender, No respiratory distress, Breath sounds nml Abdomen: Normal bowel sounds, Soft, No tenderness, No hepatospenomegaly, No masses Extremities: No clubbing, No cyanosis, No edema, Normal pulses, No tenderness/ swelling Comments/Notes: Stable rash on back - Results Results: Laboratory Results WBC 10.0 x10^3/uL (4.8-10.8) 10/08/17 05:04 RBC 3.11 10^6/uL (4.70-6.10) L 10/08/17 05:04 Hgb 10.9 g/dL (14.0-18.0) L 10/08/17 05:04 Hct 32.5 % (42.0-52.0) L 10/08/17 05:04 MCV 104.5 fL (80.0-94.0) H 10/08/17 05:04 MCH 34.9 pg (27.0-31.0) H 10/08/17 05:04 MCHC 33.4 g/dL (32.0-36.0) 10/08/17 05:04 RDW 14.1 % (12.0-15.0) 10/08/17 05:04 Plt Count 405 10^3/uL (130-450) 10/08/17 05:04 MPV 7.1 fL (7.4-11.4) L 10/08/17 05:04 Neut # 6.3 10^3/uL (1.5-6.6) 10/08/17 05:04 Lymph # 1.8 10^3/uL (1.5-3.5) 10/08/17 05:04 [place] # 1.2 10^3/uL (0.0-1.0) H 10/08/17 05:04 Eos # 0.5 10^3/uL (0.0-0.7) 10/08/17 05:04 Baso # 0.2 10^3/uL (0.0-0.1) H 10/08/17 05:04 Absolute Nucleated RBC 0.00 x10^3/uL 10/08/17 05:04 Total Counted 100 09/28/17 05:40 Band Neuts % (Manual) 1 % (0-10) 09/28/17 05:40 Reactive Lymphs % (Man) 8 % 09/28/17 05:40 Abnorm Lymph % (Manual) 0 % 09/28/17 05:40 Nucleated RBC % 0.0 /100WBC 10/08/17 05:04 Neutrophils # (Manual) 5.6 10^3/uL (1.5-6.6) 09/28/17 05:40 Lymphocytes # (Manual) 1.6 10^3/uL (1.5-3.5) 09/28/17 05:40 Monocytes # (Manual) 1.0 10^3/uL (0.0-1.0) 09/28/17 05:40 Eosinophils # (Manual) 0.8 10^3/uL (0-0.7) H 09/28/17 05:40 Basophils # (Manual) 0.2 10^3/uL (0-0.1) H 09/28/17 05:40 Differential Comment MANUAL DIFFERENTIAL 09/28/17 05:40 Manual Slide Review Indicated 09/27/17 05:20 Platelet Estimate NORMAL (130-450,000) (NORMAL) 09/28/17 05:40 Platelet Morphology 1+ LARGE PLATELETS (NORMAL) 09/28/17 05:40 RBC Morph Micro Appear 1+ POLYCHROMASIA (NORMAL) 1+ ANISOCYTOSIS (NORMAL) 1+ MACROCYTOSIS (NORMAL) 09/28/17 05:40 RBC Morph Micro Appear 1+ POLYCHROMASIA (NORMAL) 1+ ANISOCYTOSIS (NORMAL) 1+ MACROCYTOSIS (NORMAL) 09/28/17 05:40 RBC Morph Micro Appear 1+ POLYCHROMASIA (NORMAL) 1+ ANISOCYTOSIS (NORMAL) 1+ MACROCYTOSIS (NORMAL) 09/28/17 05:40 Sodium 138 mmol/L (135-145) 10/08/17 05:04 Potassium 4.1 mmol/L (3.5-5.0) 10/08/17 05:04 Chloride 102 mmol/L (101-111) 10/08/17 05:04 Carbon Dioxide 29 mmol/L (21-32) 10/08/17 05:04 Anion Gap 7.0 (6-13) 10/08/17 05:04 BUN 33 mg/dL (6-20) H 10/08/17 05:04 Creatinine 0.7 mg/dL (0.6-1.2) 10/08/17 05:04 Estimated GFR (MDRD) 112 (>89) 10/08/17 05:04 Glucose 101 mg/dL (70-100) H 10/08/17 05:04 Calcium 8.9 mg/dL (8.5-10.3) 10/08/17 05:04 Ionized Calcium NO 09/28/17 05:40 Phosphorus 4.9 mg/dL (2.5-4.6) H 09/27/17 05:20 Magnesium 2.3 mg/dL (1.7-2.8) 09/27/17 05:20 Iron 46 ug/dL (45-182) 09/28/17 08:59 TIBC 267 ug/dL (250-450) 09/28/17 08:59 % Saturation 17 % (20-50) L 09/28/17 08:59 Transferrin 191 mg/dL (180-329) 09/28/17 08:59 Ferritin 307.8 ng/mL (23.9-336.2) 09/28/17 05:40 Total Bilirubin 0.3 mg/dL (0.2-1.0) 09/28/17 05:40 AST 55 IU/L (10-42) H 09/28/17 05:40 ALT 87 IU/L (10-60) H 09/28/17 05:40 Alkaline Phosphatase 115 IU/L (42-121) 09/28/17 05:40 Total Protein 6.0 g/dL (6.7-8.2) L 09/28/17 05:40 Albumin 3.0 g/dL (3.2-5.5) L 09/28/17 05:40 Globulin 3.0 g/dL (2.1-4.2) 09/28/17 05:40 Albumin/Globulin Ratio 1.0 (1.0-2.2) 09/28/17 05:40 Lipase 32 U/L (22-51) 09/19/17 10:15 Vitamin B12 429 pg/mL (180-914) 09/20/17 08:58 Folate 15.35 ng/mL (5.90 - >24.8) 09/20/17 08:58 Urine Color DARK YELLOW 09/19/17 09:50 Urine Clarity CLEAR (CLEAR) 09/19/17 09:50 Urine pH 6.0 PH (5.0-7.5) 09/19/17 09:50 Ur Specific [place] 1.025 (1.002-1.030) 09/19/17 09:50 Urine Protein NEGATIVE mg/dL (NEGATIVE) 09/19/17 09:50 Urine Glucose (UA) NEGATIVE mg/dL (NEGATIVE) 09/19/17 09:50 Urine Ketones NEGATIVE mg/dL (NEGATIVE) 09/19/17 09:50 Urine Occult Blood NEGATIVE (NEGATIVE) 09/19/17 09:50 Urine Nitrite NEGATIVE (NEGATIVE) 09/19/17 09:50 Urine Bilirubin NEGATIVE (NEGATIVE) 09/19/17 09:50 Urine Urobilinogen 0.2 (NORMAL) E.U./dL (NORMAL) 09/19/17 09:50 Ur Leukocyte Esterase NEGATIVE (NEGATIVE) 09/19/17 09:50 Ur Microscopic Review NOT INDICATED 09/19/17 09:50 Urine Culture Comments NOT INDICATED 09/19/17 09:50 ABX Reporting Has patient been on IV antibiotics over the past 48 hours?: No
[2017-10-11] MEDS ORDERED: SENNA 8.6 MG TABLET PO PRN (16:01)
[2017-10-11] MEDS ORDERED: DOCUSATE SODIUM 250 MG CAPSULE PO PRN (16:01)
[2017-10-12] MEDS: POLYETHYLENE GLYCOL 3350 17 GM PACKET PO SCH (07:57)
[2017-10-12] MEDS: HYDROCORTISONE 1% CREAM 28 GM TUBE TOP SCH ×2 (07:59→20:10)
--- NOTE | 2017-10-12 18:56 | PROVIDER PROGRESS NOTE ---
Assessment/Plan - Problem List (1) Adult failure to thrive Assessment/Plan: Social work has found patient an adult family home. The patient will be placed at [facility] here in [place] tomorrow barring any set backs. - Current Meds Current Meds: Current Medications Generic Name Dose Route Start Last Admin Trade Name Freq PRN Reason Stop Dose Admin Calamine 118 applic 09/22/17 04:25 09/24/17 21:41 Calamine TOP 118 applic PRN PRN Administration ITCHING Docusate Sodium 250 - 500 mg 10/11/17 16:01 10/11/17 21:20 Colace 250mg Capsule PO 10/18/17 16:00 250 mg DAILY PRN Administration Constipation Hydrocortisone 1 applic 09/28/17 11:00 10/12/17 07:59 Hydrocortisone TOP 1 applic BID EJ Administration Loperamide HCl 2 mg 09/21/17 00:17 09/21/17 10:52 Imodium PO 2 mg QID PRN Administration Diarrhea Polyethylene Glycol 17 gm 10/12/17 09:00 10/12/17 07:57 Miralax PO 17 gm DAILY EJ Administration Senna 8.6 - 17.2 mg 10/11/17 16:01 10/11/17 21:20 Senokot PO 10/18/17 16:00 8.6 mg DAILY PRN Administration Constipation - Lab Result Lab results reviewed: Yes Fish Bone Diagrams: 10/08/17 05:04 10/08/17 05:04 - Additional Planning Condition/Complexity: Stable My Orders: My Active Orders 10/12/17 09:00 Polyethylene Glycol 3350 [Miralax] 17 gm PO DAILY Plan Discussed with:: Patient Time Spent: Less than 15 minutes Subjective - Subjective Patient Reports: Resting Comfortably, No Complaints Nursing Reports: No Complaints Objective Vital Signs: Vital Signs - 24 hr 10/12/17 08:15 Temperature 36.4 C L Heart Rate [ 73 Brachial] Respiratory 16 Rate Blood Pressure 125/74 [Right Brachial artery] O2 Saturation 96 Oxygen O2 Source Room air I&O (Last 24 Hrs): Intake and Output Totals x24h 10/10/17 10/11/17 10/12/17 23:59 23:59 23:59 Intake Total 2837 4277 1856 Output Total 975 Balance 1862 4277 1856 General: Alert, Oriented x3, Cooperative, No acute distress HEENT: Atraumatic, PERRLA, EOMI Neck: Supple, No JVD, No thyromegaly, +2 carotid pulse wo bruit, No LAD Lymphatic: no adenopathy Neuro: Alert, CN 2-12 Grossly Intact, Oriented Times 3 Cardiovascular: Regular rate, Normal S1, Normal S2, No murmurs Respiratory: Chest non-tender, No respiratory distress, Breath sounds nml Abdomen: Normal bowel sounds, Soft, No tenderness, No hepatospenomegaly, No masses Genitourinary: Normal Inspection, No Mass, No Discharge, No Meatal Blood, No Hernia Rectal: Non-Tender Extremities: No clubbing, No cyanosis, No edema, Normal pulses, No tenderness/ swelling Skin: No breakdown, No significant lesion Comments/Notes: Rash on back improved - Results Results: Laboratory Results WBC 10.0 x10^3/uL (4.8-10.8) 10/08/17 05:04 RBC 3.11 10^6/uL (4.70-6.10) L 10/08/17 05:04 Hgb 10.9 g/dL (14.0-18.0) L 10/08/17 05:04 Hct 32.5 % (42.0-52.0) L 10/08/17 05:04 MCV 104.5 fL (80.0-94.0) H 10/08/17 05:04 MCH 34.9 pg (27.0-31.0) H 10/08/17 05:04 MCHC 33.4 g/dL (32.0-36.0) 10/08/17 05:04 RDW 14.1 % (12.0-15.0) 10/08/17 05:04 Plt Count 405 10^3/uL (130-450) 10/08/17 05:04 MPV 7.1 fL (7.4-11.4) L 10/08/17 05:04 Neut # 6.3 10^3/uL (1.5-6.6) 10/08/17 05:04 Lymph # 1.8 10^3/uL (1.5-3.5) 10/08/17 05:04 [place] # 1.2 10^3/uL (0.0-1.0) H 10/08/17 05:04 Eos # 0.5 10^3/uL (0.0-0.7) 10/08/17 05:04 Baso # 0.2 10^3/uL (0.0-0.1) H 10/08/17 05:04 Absolute Nucleated RBC 0.00 x10^3/uL 10/08/17 05:04 Total Counted 100 09/28/17 05:40 Band Neuts % (Manual) 1 % (0-10) 09/28/17 05:40 Reactive Lymphs % (Man) 8 % 09/28/17 05:40 Abnorm Lymph % (Manual) 0 % 09/28/17 05:40 Nucleated RBC % 0.0 /100WBC 10/08/17 05:04 Neutrophils # (Manual) 5.6 10^3/uL (1.5-6.6) 09/28/17 05:40 Lymphocytes # (Manual) 1.6 10^3/uL (1.5-3.5) 09/28/17 05:40 Monocytes # (Manual) 1.0 10^3/uL (0.0-1.0) 09/28/17 05:40 Eosinophils # (Manual) 0.8 10^3/uL (0-0.7) H 09/28/17 05:40 Basophils # (Manual) 0.2 10^3/uL (0-0.1) H 09/28/17 05:40 Differential Comment MANUAL DIFFERENTIAL 09/28/17 05:40 Manual Slide Review Indicated 09/27/17 05:20 Platelet Estimate NORMAL (130-450,000) (NORMAL) 09/28/17 05:40 Platelet Morphology 1+ LARGE PLATELETS (NORMAL) 09/28/17 05:40 RBC Morph Micro Appear 1+ POLYCHROMASIA (NORMAL) 1+ ANISOCYTOSIS (NORMAL) 1+ MACROCYTOSIS (NORMAL) 09/28/17 05:40 RBC Morph Micro Appear 1+ POLYCHROMASIA (NORMAL) 1+ ANISOCYTOSIS (NORMAL) 1+ MACROCYTOSIS (NORMAL) 09/28/17 05:40 RBC Morph Micro Appear 1+ POLYCHROMASIA (NORMAL) 1+ ANISOCYTOSIS (NORMAL) 1+ MACROCYTOSIS (NORMAL) 09/28/17 05:40 Sodium 138 mmol/L (135-145) 10/08/17 05:04 Potassium 4.1 mmol/L (3.5-5.0) 10/08/17 05:04 Chloride 102 mmol/L (101-111) 10/08/17 05:04 Carbon Dioxide 29 mmol/L (21-32) 10/08/17 05:04 Anion Gap 7.0 (6-13) 10/08/17 05:04 BUN 33 mg/dL (6-20) H 10/08/17 05:04 Creatinine 0.7 mg/dL (0.6-1.2) 10/08/17 05:04 Estimated GFR (MDRD) 112 (>89) 10/08/17 05:04 Glucose 101 mg/dL (70-100) H 10/08/17 05:04 Calcium 8.9 mg/dL (8.5-10.3) 10/08/17 05:04 Ionized Calcium NO 09/28/17 05:40 Phosphorus 4.9 mg/dL (2.5-4.6) H 09/27/17 05:20 Magnesium 2.3 mg/dL (1.7-2.8) 09/27/17 05:20 Iron 46 ug/dL (45-182) 09/28/17 08:59 TIBC 267 ug/dL (250-450) 09/28/17 08:59 % Saturation 17 % (20-50) L 09/28/17 08:59 Transferrin 191 mg/dL (180-329) 09/28/17 08:59 Ferritin 307.8 ng/mL (23.9-336.2) 09/28/17 05:40 Total Bilirubin 0.3 mg/dL (0.2-1.0) 09/28/17 05:40 AST 55 IU/L (10-42) H 09/28/17 05:40 ALT 87 IU/L (10-60) H 09/28/17 05:40 Alkaline Phosphatase 115 IU/L (42-121) 09/28/17 05:40 Total Protein 6.0 g/dL (6.7-8.2) L 09/28/17 05:40 Albumin 3.0 g/dL (3.2-5.5) L 09/28/17 05:40 Globulin 3.0 g/dL (2.1-4.2) 09/28/17 05:40 Albumin/Globulin Ratio 1.0 (1.0-2.2) 09/28/17 05:40 Lipase 32 U/L (22-51) 09/19/17 10:15 Vitamin B12 429 pg/mL (180-914) 09/20/17 08:58 Folate 15.35 ng/mL (5.90 - >24.8) 09/20/17 08:58 Urine Color DARK YELLOW 09/19/17 09:50 Urine Clarity CLEAR (CLEAR) 09/19/17 09:50 Urine pH 6.0 PH (5.0-7.5) 09/19/17 09:50 Ur Specific [place] 1.025 (1.002-1.030) 09/19/17 09:50 Urine Protein NEGATIVE mg/dL (NEGATIVE) 09/19/17 09:50 Urine Glucose (UA) NEGATIVE mg/dL (NEGATIVE) 09/19/17 09:50 Urine Ketones NEGATIVE mg/dL (NEGATIVE) 09/19/17 09:50 Urine Occult Blood NEGATIVE (NEGATIVE) 09/19/17 09:50 Urine Nitrite NEGATIVE (NEGATIVE) 09/19/17 09:50 Urine Bilirubin NEGATIVE (NEGATIVE) 09/19/17 09:50 Urine Urobilinogen 0.2 (NORMAL) E.U./dL (NORMAL) 09/19/17 09:50 Ur Leukocyte Esterase NEGATIVE (NEGATIVE) 09/19/17 09:50 Ur Microscopic Review NOT INDICATED 09/19/17 09:50 Urine Culture Comments NOT INDICATED 09/19/17 09:50 ABX Reporting Has patient been on IV antibiotics over the past 48 hours?: No
[2017-10-13 06:29] VITALS: BP 116/65
[2017-10-13] MEDS: HYDROCORTISONE 1% CREAM 28 GM TUBE TOP SCH (07:59)
[2017-10-13] MEDS: POLYETHYLENE GLYCOL 3350 17 GM PACKET PO SCH (08:05)
--- NOTE | 2017-10-13 08:15 | Discharge Plan ---
Discharge Plan Disposition: Home, Self Care Condition: Stable Diet: Regular Activity Restrictions: Activity as Tolerated Shower Restrictions: No Driving Restrictions: No Weight Bearing: Full Weight Additional Instructions or Follow Up instructions: You are doing well and are being discharged to [facility] here in [place]. We hope you enjoyed your stay here at [facility]. We all really enjoyed having you here. You were very delightful and we hope that you will enjoy your new home. We would all like to wish you an early Happy Birthday. No Smoking: If you smoke, Please STOP! Call for help. Follow-up with: Zenon Lawler MD [Primary Care Provider] -
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
== END 2017-10-13 15:15 | disposition home or self-care (01) | DRG 641 ==
LOC: EDUNIT# → ED 09:42 → OBS 15:46 → MS2 20:42 → OBS 20:55 → MS2 21:48 → OBSVTOIN 09-20 18:27
PROVIDERS: ADMIT Hospitalist; ATTEND Internal Medicine
DX: R62.7 Adult failure to thrive (principal); T76.91XA Unspecified adult maltreatment, suspected, initial encounter; R62.50 Unspecified lack of expected normal physiological development in childhood; D64.9 Anemia, unspecified; R21 Rash and other nonspecific skin eruption; E86.0 Dehydration; Z74.2 Need for assistance at home and no other household member able to render care; R74.0 Nonspecific elevation of levels of transaminase and lactic acid dehydrogenase [LDH]
CPT/HCPCS: 36415; 80048; 80053; 81001; 81003; 82607; 82728; 82746; 83540; 83690; 83735; 84100; 84466; 85025; 87045; 87046; 87086; 87493; 96365; 96366; 96368; 99284

== ENCOUNTER 2019-07-20 16:22 | Outpatient (CLI) | payer MEDICARE, MEDICAID | END 2019-07-20 16:23 | disposition critical access hospital (66) | LOC: EMS 16:22 | PROVIDERS: ATTEND Surgery | DX: I46.9 Cardiac arrest, cause unspecified (principal) | CPT/HCPCS: A0425; A0433 ==

== ENCOUNTER 2019-07-20 16:25 | Emergency (ER) | payer MEDICARE, MEDICAID ==
[2019-07-20] MEDS ORDERED: SODIUM BICARBONATE 8.4% 50 MEQ/50 ML VIAL ONE (16:37)
--- NOTE | 2019-07-20 16:57 | ED Physician Documentation ---
History of Present Illness - Stated complaint Stated Complaint: CPR - History obtained from History obtained from: EMS, Caregiver (Anai) - History of Present Illness Timing: How many hours ago (1) Pain level max: 0 Pain level now: 0 - Additonal information Additional information: 73-year-old male is developmentally delayed. Lives in an adult family home. Had a witnessed cardiac arrest approximately 1 hour ago. Found to be in ventricular fibrillation with EMS. He received epinephrine at least 5 times, along with 4 defibrillations. He had complained of chest pain apparently this morning and last night. He did have return of spontaneous circulation x3 with EMS, the longest was approximately 2 minutes per EMS. He reverted back to asystole and cardiac arrest upon arrival to the emergency department. Review of Systems Unable to obtain: Unresponsive, Intubated PD PAST MEDICAL HISTORY - Past Medical History Past Medical History: Yes Other Past Medical History: Developmental delay - Past Surgical History Past Surgical History: No - Present Medications Home Medications: Ambulatory Orders Medication Instructions Recorded Confirmed No Known Home Medications 08/17/15 09/19/17 - Allergies Allergies/Adverse Reactions: Allergies Allergy/AdvReac Type Severity Reaction Status Date / Time No Known Drug Allergies Allergy Verified 08/17/15 10:00 - Social History Does the pt smoke?: No Smoking Status: Current some day smoker Does the pt drink ETOH?: No Does the pt have substance abuse?: No - Immunizations Immunizations: TDAP >10years/unknown - POLST Patient has POLST: No POLST Status: Full Code PD ED PE NORMAL - Vitals Vital signs reviewed: Yes - General General: Other (Intubated, unresponsive) - HEENT HEENT: Other (Pupils fixed and dilated) - Neck Neck: Supple, no meningeal sign - Cardiac Cardiac: Other (Irregular) - Respiratory Respiratory: Other (Rhonchi bilaterally) - Abdomen Abdomen: Soft, Non distended - Derm Derm: Other (Mottled skin) - Extremities Extremities: No edema - Neuro Neuro: Other (Intubated, unresponsive) Results - Vitals Vitals: Vital Signs - 24 hr 07/20/19 07/20/19 07/20/19 16:40 16:45 16:50 Heart Rate 119 H 106 H 147 H Respiratory 14 13 14 Rate Blood Pressure 121/88 H 102/77 85/69 L O2 Saturation 99 98 90 L 07/20/19 07/20/19 16:55 17:00 Heart Rate 91 95 Respiratory 13 14 Rate Blood Pressure 125/87 H 118/87 H O2 Saturation 88 L 62 L Oxygen O2 Source Room air PD MEDICAL DECISION MAKING - ED course Complexity details: reviewed results, re-evaluated patient, considered differential, d/w patient ED course: Patient was coded again in the emergency department for approximately 5 minutes. Received epinephrine and sodium bicarb. Had Rosc. Discussed the case with caregiver, Anai, after discussion it was determined that he would not want to live like this. He will likely have a very poor neurological outcome given the length of downtime and the fixed and dilated pupils. At that point they decided to withdraw care. The patient was extubated in the emergency department. And allowed to with his caregivers and other residents of the home with him. Caregiver states he has no family. Time of 1734. Confirmed asystole anterior leads. Pupils fixed and dilated. No cardiac sounds and no pulse Departure - Departure Disposition: 20 Clinical Impression: Cardiac arrest
[2019-07-20 18:05] VITALS: BP 118/87
== END 2019-07-21 00:19 | disposition expired ==
LOC: ED 16:25
DX: I46.9 Cardiac arrest, cause unspecified (principal); I49.01 Ventricular fibrillation
CPT/HCPCS: 93005; 99281; 99285